=== PATIENT | male | born 1970 | race Caucasian/White ===

== ENCOUNTER → 2020-09-15 17:46 | Outpatient (CLI) | payer OTHER, SELFPAY ==
--- NOTE | ~2020-09-15 | XR_ITS ---
XR cervical spine min 6V DATE: 09/15/2020 18:05 INDICATION: Skin anesthesia TECHNIQUE: AP, open-mouth, lateral, swimmer views. Bilateral oblique views. COMPARISON: None FINDINGS: There is straightening of the cervical spine. C1 and C2 are normally aligned and the odontoid process is intact. No fracture or dislocation or locked facet or prevertebral soft tissue swelling. There is moderate degenerative disc disease and prominent posterior spurring at C5-6. The remaining cervical interspaces are relatively well preserved. There is prominent uncovertebral joint spurring at C5-6 bilaterally, encroaching upon the C6 neural f oramina bilaterally the remaining neural foramina appear patent. IMPRESSION: Straightening of the cervical spine, which may be due to muscle spasm. Moderate degenerative disc disease and prominent posterior spurring at C5-C6 Prominent bilateral C5-6 uncovertebral joint spurring encroaching prominently upon the anterior aspec t of the C6 neural foramina bilaterally Reviewed, dictated and finalized at location A. IMPRESSION: Straightening of the cervical spine, which may be due to muscle spa sm. Moderate degenerative disc disease and prominent posterior spurring at C5-C6 Prominent bilateral C5-6 uncovertebral joint spurring encroaching prominently u taina the anterior aspect of the C6 neural foramina bilaterally
== END ==
PROVIDERS: Visit Provider Nurse Practitioner Family
DX: R20.0 Anesthesia of skin (principal); M50.322 Other cervical disc degeneration at C5-C6 level
CPT/HCPCS: 72052

== ENCOUNTER → 2020-10-08 17:37 | Outpatient (CLI) | payer OTHER, SELFPAY ==
--- NOTE | ~2020-10-08 | MR_ITS ---
EXAMINATION: MR cervical spine wo con DATE: 10/08/2020 19:13 INDICATION: Neck pain radiating down left arm. TECHNIQUE: Magnetic resonance imaging (MRI) of the cervical spine was performed without intravenous c ontrast. Sequences included sagittal T2-weighted FSE, sagittal STIR FSE, sagittal T1-weighted FSE, ax ial MERGE, and axial T2-weighted FSE. COMPARISON: Cervical spine radiographs 09/15/2020 FINDINGS: There is 4 degrees dextrocurvature of cervical spine. There is mild kyphosis of cervical sp ine. Vertebral body heights are normal. There is moderately decreased disc height at C5-C6. The spina l cord signal intensity is normal. The following disc levels are specifically discussed: C2-C3: The disc does not extend beyond the endplate margin. There is no uncovertebral joint osteoarth ritis. There is moderate right and severe left facet joint osteoarthritis. There is mild left neural foraminal stenosis. There is no central canal stenosis. C3-C4: The disc does not extend beyond the endplate margin. There is moderate left uncovertebral join t osteoarthritis. There is mild right and moderate left facet joint osteoarthritis. There is moderate left neural foraminal stenosis. There is no central canal stenosis. C4-C5: The disc does not extend beyond the endplate margin. There is no uncovertebral joint osteoarth ritis. There is mild left facet joint osteoarthritis. There is no neural foraminal stenosis. There is no central canal stenosis. C5-C6: The disc is bulging. There is severe bilateral uncovertebral joint osteoarthritis. There is mi ld right and severe left facet joint osteoarthritis. There is mild right and moderate left neural for aminal stenosis. There is mild central canal stenosis with ventral indentation of the spinal cord. C6-C7: The disc does not extend beyond the endplate margin. There is mild left uncovertebral joint os teoarthritis. There is moderate bilateral facet joint osteoarthritis. There is no neural foraminal st enosis. There is no central canal stenosis. C7-T1: The disc does not extend beyond the endplate margin. There is no uncovertebral joint osteoarth ritis. There is mild right and severe left facet joint osteoarthritis. There is mild left neural fora andrea stenosis. There is no central canal stenosis. IMPRESSION: 1. Moderate cervical spondylosis, worst at C5-C6. Reviewed, dictated and finalized at location A.
== END ==
PROVIDERS: PCP Family Medicine; Visit Provider Nurse Practitioner Family
DX: S19.9XXD Unspecified injury of neck, subsequent encounter (principal); X58.XXXD Exposure to other specified factors, subsequent encounter; M47.892 Other spondylosis, cervical region
CPT/HCPCS: 72141

== ENCOUNTER 2020-11-07 14:51 | Outpatient (CLI) | payer OTHER, SELFPAY ==
--- NOTE | ~2020-11-07 | CT_ITS ---
EXAMINATION: CT abdomen pelvis w con EXAM DATE: 11/07/2020 15:31 INDICATION: R10.31 - Right lower quadrant pain . Symptoms 3-4 days. TECHNIQUE: Spiral CT of the abdomen and pelvis was performed following intravenous injection of 100 m L Omnipaque 350. Axial, coronal and sagittal images of the abdomen and pelvis were reviewed. The do se-length product (DLP) for this examination was 1349.56 mGy-cm. The exposure was tailored according to patient size (auto mA exposure control), and iterative reconstruction (ASIR) was used as addition al dose reduction technique. There is no prior study for comparison. FINDINGS: The origin of the appendix is normal in caliber, but the tip is severely dilated at 2 cm, w ith thickened edematous wall. No perforation or abscess. Mild adjacent inflammation. Several round pe ricecal lymph nodes, largest measuring 9 mm. The liver, spleen, adrenal glands and pancreas are unremarkable. Gallbladder is unremarkable. No bi liary obstruction. Portal and splenic veins are patent. Kidneys enhance symmetrically. There is no hydronephrosis. Lobular renal contours bilaterally. There is mild prostatomegaly. The bladder is un remarkable. There is no retroperitoneal or pelvic lymphadenopathy. There is mild scattered arterio sclerotic disease. Small left inguinal fat-containing hernia. The stomach and small bowel are unremarkable. There is expected amount of colonic stool. No free i ntraperitoneal gas. The heart is normal in size. There are no pericardial or pleural effusions. T he lung bases are unremarkable. There are no osteoblastic or osteolytic lesions identified. IMPRESSION: Acute tip appendicitis, distended up to 2 cm in diameter. STAT hold and call. I confirmed that patient is in waiting room. She is notifying ordering doctor o f results and patient will be given instructions at that time. Reviewed, dictated and finalized at location B. IMPRESSION: Acute tip appendicitis, distended up to 2 cm in diameter. STAT hold and call. I confirmed that patient is in waiting room. She is notif melisa ordering doctor of results and patient will be given instructions at that time.
[2020-11-07 15:31] LABS: Basophils Percent Auto 0.4 % (0.2-1.2); Eosinophils Absolute Auto 0.1 K/mm3 (0-0.3); Eosinophils Percent Auto 1.2 % (0-4.4); Hematocrit 47.8 % (42.0-52.0); Hemoglobin 15.5 g/dL (14.0-18.0); Immature Granulocyte Absolute 0.04 K/mm3 (0.00-0.031); Immature Granulocyte Percent A 0.4 % (0-0.5); Lymphocytes Absolute Auto 2.06 K/mm3 (0.9-3.2); Lymphocytes Percent Auto 20.2 % (18.3-44.2); Mean Corpuscular HGB Conc 32.4 g/dl (32-36); Mean Corpuscular Hemoglobin 28.9 pg (26-34); Mean Corpuscular Volume 89.2 fl (80-100); Mean Platelet Volume 9.4 fl (7.4-10.4); Monocytes Absolute Auto 0.9 K/mm3 (0.1-0.6); Monocytes Percent Auto 9.2 % (2.6-8.5); Neutrophils Percent Auto 68.6 % (45.5-73.1); Platelet Count Result 200 k/mm3 (150-375); Red Blood Count 5.36 M/mm3 (4.6-6.20); Red Cell Distribution Width 13.1 % (11.5-14.5); White Blood Count 10.2 K/mm3 (4.5-10.0)
[2020-11-07 15:41] LABS: Alanine Aminotransferase 59 U/L (4-50); Albumin Level 4.8 g/dL (3.5-5.1); Alkaline Phosphatase 113 U/L (38-126); Anion Gap 7 mmol/L (8-16); Aspartate Amino Transferase 50 U/L (17-59); Blood Urea Nitrogen 12 mg/dL (9-20); Calcium 9.8 mg/dL (8.4-10.2); Carbon Dioxide 31 mmol/L (22-30); Chloride 100 mmol/L (98-107); Estimated Glomerular Filt Rate > 60; Glucose 90 mg/dL (75-110); Potassium 4.1 mmol/L (3.4-5.0); Sodium 138 mmol/L (137-145)
== END 2020-11-07 14:52 | disposition home or self-care (01) ==
PROVIDERS: PCP Family Medicine; Visit Provider Physician Assistant Medical
DX: R10.31 Right lower quadrant pain (principal); K35.80 Unspecified acute appendicitis
CPT/HCPCS: 36415; 74177; 80053; 85025; Q9967

== ENCOUNTER 2020-11-07 16:18 | Observation (INO) | payer OTHER, SELFPAY ==
[2020-11-07 16:30] VITALS: BP 180/103; PULSE 80; RESP 18; TEMP 36.8; O2SAT 100
[2020-11-07 17:09] VITALS: BP 152/89; PULSE 72; RESP 18; O2SAT 99
--- NOTE | 2020-11-07 18:11 | ED.ABDPAIN ---
HPI - Abdominal Pain General Chief Complaint: Abdominal Pain Stated Complaint: Sent From CT Time Seen by Provider: 11/07/20 16:47 Source: patient Mode of arrival: ambulatory Limitations: no limitations History of Present Illness HPI narrative: 50-year-old male Sent from radiology because of a abdominal CT scan positive for appendicitis Patient notes that he had lower abdominal pain predominantly in the right lower quadrant, was seen in his doctor's office, labs and the CT were ordered, resulting in his referral to us He had a poor appetite all day but no vomiting no fever and no bowel disturbance Pain is worse when he moves around and better when he rests Patient is otherwise healthy Related Data Allergies Allergy/AdvReac Type Severity Reaction Status Date / Time No Known Allergies Allergy Verified 11/07/20 16:30 Review of Systems Review of Systems: All systems reviewed & are unremarkable except as noted in HPI and below Constitutional: Constitutional: Reports no additional constitutional complaints, Denies chills, Denies fever(s) and Denies headache(s) ENT: Denies headache(s) Cardiovascular: Cardiovascular: Denies chest pain and Denies dyspnea Respiratory: Respiratory: Denies cough and Denies dyspnea Gastrointestinal: Gastrointestinal: Reports abdominal pain, Denies diarrhea and Denies vomiting Genitourinary: Genitourinary: Denies dysuria and Denies urinary frequency Musculoskeletal: Musculoskeletal: Denies deformity and Denies numbness Integumentary/Breasts: Skin/Breast: Denies wounds Neurologic: Denies headache(s) [facility] Past Medical History Medical History BMI 31.0-31.9,adult BMI 32.0-32.9,adult BMI greater than 30 Surgical History Surgical History Status post surgical removal of nail matrix of toe Family History Family History Grandparent Cerebrovascular accident Malignant neoplasm of prostate Father Family history of coronary artery disease Acute myocardial infarction Mother No problems noted. 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 Gender identity (if verbalized by the patient): Male Exam Const: General: cooperative and no acute distress Orientation/consciousness: patient oriented x3 (alert) HENMT: Head: normal to inspection, normocephalic and atraumatic Ears: external ears normal General nose exam: no epistaxis Eyes: Conjunctivae: conjunctivae normal EOM: EOMs intact bilaterally Neck: Neck: normal visual inspection, supple and no JVD Resp: Effort & Inspection: normal respiratory effort and not labored Auscultation: clear to auscultation bilaterally and other (BS =) Cardio: Rate: regular rate Rhythm: regular rhythm Heart sounds: no murmurs GI: GI Palp: Yes Soft to palpation, Yes Tenderness to palpation present (GI), Yes Guarding due to palpation present (GI), No Rigid due to palpation and No Rebound tenderness present Other: Right lower quadrant tenderness at McBurney's point with guarding : General: Yes no CVA tenderness Skin: General skin exam: normal color and no rashes or lesions noted Neuro: General: patient oriented x3 (alert) and moves all extremities Speech: normal speech Extrem: General: normal to inspection and no pedal edema Psych: Affect: normal affect Course Course Emergency Course: Discussed with Dr. Mccrary, likely plan is for OR
[2020-11-07 19:55] VITALS: BP 191/99; PULSE 61; RESP 18; TEMP 36.5; O2SAT 100; BMI 30.5
--- NOTE | 2020-11-07 19:55 | ADMGEN ---
This patient, Jules Rodríguez, was admitted to Medical Room 348-01. Patient/family oriented to hospital policies and general routines including ID bracelet, bed and alarms, visiting hours, pain management, procedures, bathroom and other care routines, personal items, smoking policy, room service/diet, and visiting hours. Information on how to activate the Rapid Response Team has been discussed. Patient/Family are encouraged to report perceived risks to care and to ask questions if they do not understand what they are told or what they should do.
[2020-11-07] MEDS: LACTATED RINGERS 1,000 ML 125 ML IV CONT (20:00)
[2020-11-07] MEDS: FAMOTIDINE 20 MG/2 ML VIAL IV PUSH (20:24)
[2020-11-08] VITALS (8 sets, daily range): BP systolic 139–182; BP diastolic 79–93; PULSE 52–99; RESP 12–16; TEMP 35.9–36.2; O2SAT 93–100
--- NOTE | 2020-11-08 02:19 | PM.IMHP ---
H&P: HPI History of Present Illness Date/Time: 11/08/20 02:19 Chief Complaint: RIGHT LOWER QUADRANT ABDOMINAL PAIN Narrative: patient reports having heartburn for 3-4 days. His pain moved to the right lower quadrant. He has not had any nausea or vomiting. Movement makes the pain worse. He was seen by his primary care provider this morning. He was noted to have significant tenderness in the right lower quadrant. Stat CT scan of the abdomen and pelvis was done. This showed acute appendicitis with the distal appendix being 2 cm in diameter. He was sent to the emergency room from x-ray. His white blood cell count yesterday afternoon was 10,200. Hemoglobin and hematocrit were normal. He was admitted and started on IV Zosyn antibiotics. Review of Systems Review of Systems: All systems reviewed & are unremarkable except as noted in HPI and below Constitutional: Constitutional: Denies body ache(s), Denies chills, Denies fever(s), Denies headache(s) and Reports poor appetite ENT: Denies headache(s) Cardiovascular: Cardiovascular: Denies chest pain and Denies dyspnea Respiratory: Respiratory: Denies cough and Denies dyspnea Gastrointestinal: Gastrointestinal: Reports as per HPI, Reports abdominal pain, Reports heartburn, Denies nausea and Denies vomiting Neurologic: Denies confusion and Denies headache(s) Psychiatric: Psychiatric: Denies confusion PMFSH Past Medical History Medical History BMI 31.0-31.9,adult BMI 32.0-32.9,adult BMI greater than 30 Surgical History Surgical History Status post surgical removal of nail matrix of toe Family History Family History Grandparent Cerebrovascular accident Malignant neoplasm of prostate Father Family history of coronary artery disease Acute myocardial infarction Mother No problems noted. 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 Gender identity (if verbalized by the patient): Male Sexual Orientation (if Verbalized by the Patient): Straight or Heterosexual Spiritual care concerns: No Meds Home Medications and Allergies Home Medications Medication Instructions Recorded Confirmed Type rosuvastatin 20 mg tablet 20 mg PO DAILY #30 tablet 11/07/20 11/07/20 Rx Allergies Allergy/AdvReac Type Severity Reaction Status Date / Time No Known Allergies Allergy Verified 11/07/20 20:03 Vital Signs Vital Signs - 24 hr 11/07/20 16:30 11/07/20 17:09 11/07/20 19:55 Temperature 36.8 C 36.5 C Pulse Rate 80 72 61 Respiratory Rate 18 18 18 Blood Pressure 180/103 H 152/89 H 191/99 H Pulse Oximetry 100 99 100 Exam Const: General: cooperative, comfortable, no acute distress, alert and awake; No confusion Orientation/consciousness: No confusion HENMT: Head: normocephalic, atraumatic, no contusions and no scalp lesions Ears: external ears normal General nose exam: Normal external nose present Face and sinus: face symmetric and dry mucous membranes Mouth: Yes Normal oral and palatal mucosa present and Yes tongue normal Throat: posterior oropharynx normal Eyes: Conjunctivae: conjunctivae normal Sclera: sclerae normal Pupils: Equal, round and reactive pupils present EOM: EOMs intact bilaterally Neck: Neck: normal visual inspection, no lymphadenopathy, trachea midline, supple, nontender and no JVD Thyroid: abnormal thyroid
[2020-11-08] MEDS: LACTATED RINGERS 1,000 ML 125 ML IV CONT (04:43)
--- NOTE | 2020-11-08 06:49 | WPDHPUPDATE1 ---
History and Physical Update Update Date/Time: 11/08/20 06:49 History and Physical has been reviewed, including an updated exam of the patient. There are NO changes in the patient's condition. Risks, benefits, and alternatives have been discussed and questions answered. Patient agrees to proceed with procedure.
--- NOTE | 2020-11-08 07:33 | PC.NURSE ---
Patient to OR per bed.
--- NOTE | 2020-11-08 07:44 | WPDANESEPPF ---
Anes - Initial Pre Proc Eval Procedure: Operation Date: 11/08/20 08:00 Proposed Procedures p Laparoscopic Appendectomy - Severo Mccrary MD Date/Time: 11/08/20 07:44 Surgeon: Severo Mccrary MD Pre Op Diagnosis: appendicitis Patient Data Age: 50 Gender: M Height: 1.96 m Weight: 116.9 kg Last Vital Signs Temp 35.9 C L 11/08/20 05:37 Pulse 52 L 11/08/20 05:37 Resp 16 11/08/20 05:37 BP 139/82 11/08/20 05:37 Pulse Ox 99 11/08/20 05:37 Allergies Allergy/AdvReac Type Severity Reaction Status Date / Time No Known Allergies Allergy Verified 11/07/20 20:03 Home Medications Medication Instructions Recorded Confirmed Type rosuvastatin 20 mg tablet 20 mg PO DAILY #30 tablet 11/07/20 11/07/20 Rx Patient hx anesthesia problems: none Family hx anesthesia problems: none PMFSH Past Medical History Medical History BMI 32.0-32.9,adult ETOH abuse Surgical History Surgical History Status post surgical removal of nail matrix of toe Family History Family History Grandparent Cerebrovascular accident Malignant neoplasm of prostate Father Family history of coronary artery disease Acute myocardial infarction Mother No problems noted. 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 Gender identity (if verbalized by the patient): Male Sexual Orientation (if Verbalized by the Patient): Straight or Heterosexual Spiritual care concerns: No Anes - Eval Final PreProcedure Day of Procedure 11/08/20 07:44 Patient weight: obese Heart: regular rate and rhythm Lungs: clear to auscultation Airway: Mallampati scale class II Neurological: alert and oriented Last oral intake: >/= 8 hours ASA classification: III Emergent: yes Anesthetic plan: proceed Anesthesia type and monitoring: general ETT and standard monitoring Informed Consent: The patient's anesthetic plan and its attendant risks and benefits were discussed with the patient/family/POA by Dr. Bergeron who examined patient in preop. Questions were solicited and answers provided to the satisfaction of the patient/family/POA.
[2020-11-08] MEDS: BUPIVACAINE/EPINEPHRINE 0.5% 30 ML VIAL INFILTRATE (08:28)
[2020-11-08] MEDS: LACTATED RINGERS 1,000 ML 30 ML IV CONT (08:56)
--- NOTE | 2020-11-08 09:02 | P.OP_ITS ---
Procedure Note - Detailed Date of procedure: 11/08/20 Pre-op diagnosis: appendicitis acute appendicitis Post-op diagnosis: same Procedure performed: Laparoscopic appendectomy Description of procedure: The patient was taken to surgery and induced into general anesthesia. The abdomen was prepped and draped. Trocars were placed in the usual fashion using 0.5% Marcaine with epinephrine and applied Medical optical trocars. A 5 mm camera was used. The patient was placed in Trendelenburg with the right side elevated. The appendix was found and was elevated anteriorly. As suggested on the CT scan, the appendix was very dilated at its distal half or 2/3. Its mesentery was quite thickened as well. There was no gross evidence of malignancy but certainly this is a concern. The base of the appendix appeared completely normal. Dissection was carried out in the mesoappendix at the base of the appendix. The mesoappendix was dissected and the appendiceal vessels cauterized for hemostasis. Eventually the base of the appendix was skeletonized. The appendix was ligated at its base with a Vicryl endo-loop. It was amputated just above the ligature and the mucosa of the appendiceal stump was cauterized. The appendix was immediately placed in an Endo-Catch bag and retrieved through the 10 11 left lower quadrant trocar site. The left lower quadrant trocar site had to be enlarged to accommodate the enlarged appendix. We replaced the 10 11 trocar and occluded the skin with a towel clip. I then reviewed the right lower quadrant and areas of dissection. All looked good with no evidence of bleeding or other problems. We evacuated CO2 and removed the trocar sleeves. Skin wounds were closed with subcuticular 4 O Monocryl skin suture. The wounds were dressed with Exofin surgical adhesive. The patient was awakened and taken to recovery in good condition. Sponge and needle counts were correct x2. Anesthesia: GETA and local (0.5% Marcaine with epinephrine) Surgeon: Severo Mccrary MD Electronic Typesetting Machine Operator: Tanya RICO Estimated blood loss (mL): 10 Drains: No Packing: No Pathology: yes (Appendix) Complications: None Condition: stable Disposition: PACU Findings: Acute non perforated appendicitis with a very dilated, thickened distal half of the appendix.
[2020-11-08] MEDS: ONDANSETRON INJ 4 MG/2 ML VIAL IV PUSH (09:05)
--- NOTE | 2020-11-08 09:07 | PM.DS ---
DS: Admitting Diagnosis Admitting Diagnosis Admitting Diagnosis: Acute appendicitis DS: Discharge Diagnosis Discharge Diagnosis (1) Appendicitis: Code(s): K37 - Unspecified appendicitis Status: Acute DS: Summary Hospital Course Hospital Course: Patient was admitted to the hospital through the ER in the evening of November 07, 2020. He had had some heartburn followed by right lower quadrant and back pain. He was noted to be tender in the right lower [place] [address] scan showed evidence of acute appendicitis. Patient was admitted and started on IV Zosyn. He was observed overnight. He was still having quite a bit of right lower quadrant abdominal pain the following morning, 11/08/2020. Discussion was carried out regarding medically treating acute appendicitis versus laparoscopic appendectomy. It was decided to proceed with laparoscopic appendectomy. The patient had an uneventful laparoscopic appendectomy in the morning of November 08, 2020. The appendix was actually very dilated and thickened over its distal half. An intraluminal growth or neoplasm is a possibility. Pathology is pending. Patient did well after surgery and was able to be discharged after period of observation. Time spent discussing smoking cessation with patient: 3 to 10 minutes Status at Discharge Functional status at discharge: independent ambulation Overall status at discharge: patient is progressing back to baseline Time Spent with Patient Time attestation: Total time spent providing and/or coordinating discharge services: DS: Data Data Completed and Pending Pending studies at discharge: Pending at discharge 11/08/20 08:24 Surgical [PTH] Routine Discharge Plan Discharge Attending physician on discharge: Severo Mccrary Discharging Clinician: Severo Mccrary Anticipated Discharge Date/Time: 11/08/20 13:00 Patient Disposition: Home, Self-Care Activity: may shower, no straining and as tolerated Diet: as tolerated and regular Wound Care Instructions: incision open to air Discharge Instructions: 1. May shower the day after surgery over incisions. 2. Call office for: -Wound increasingly painful or bleeding -Vomiting -Fever of greater than 101 degrees 3. Expect some blood on dressing and old blood on skin. 4. If no bowel movement for three days, take 1 oz. (30 ml) Milk of Magnesia, if no results, take Fleets enema. 5. No heavy lifting > 15-20 pounds for 2 weeks. 6. No driving for 3 days or while taking narcotic pain medications. 7. Up walking 10-30 minutes three times per day. 8. Resume previous home medications. 9. Follow-up 10-14 days in office for wound check or as previously scheduled. 10. Oral pain medications prescription to be sent home with patient. 11. NUTRITION: Start out by drinking fluids and increase your diet as tolerated. If you experience nausea, try dry toast, crackers, and 7-UP. If nausea or vomiting persists, contact your surgeon?s office. Patient Instructions: Antibiotic Form Stand Alone Forms: General Discharge Information Follow-up/Referrals: Severo Mccrary MD [Physician] - 2 Weeks (Call for appointment) Discharge Medications: New hydrocodone-acetaminophen 5-325 mg tablet 1 - 2 tablet PO Q6H PRN (Reason: pain) Qty: 7 RF: 0 ketorolac 10 mg tablet 10 mg PO Q6H 4 Days Qty: 16 RF: 0 Continued rosuvastatin [Crestor] 20 mg tablet 20 mg PO DAILY Qty: 30 RF: 2 Date of admission: 11/07/20 17:35 Primary Care Provider: Pete Landrum Admitting Provider: Severo Mccrary Attending physician on admission: Severo Mccrary Condition: Improved
[2020-11-08] MEDS: diphenhydrAMINE HCl INJ 50 MG/ML VIAL 25 MG IV PUSH (09:21)
[2020-11-08] MEDS: SCOPOLAMINE 1.5 MG PATCH TRANSDERM (09:40)
--- NOTE | 2020-11-08 10:15 | PC.NURSE ---
Pt returned from OR per bed. Report received from DASIA Velasquez.
[2020-11-08] MEDS: ROSUVASTATIN 10 MG TABLET 20 MG PO (10:50)
[2020-11-08] MEDS: ENOXAPARIN 40 MG/0.4 ML SYRINGE SUB-Q (12:38)
[2020-11-08] MEDS: ACETAMINOPHEN 500 MG TABLET PO (12:53)
== END 2020-11-08 18:13 | disposition home or self-care (01) ==
LOC: ANHED 18:17 → ANH3MED 18:25
PROVIDERS: Admitting Provider Surgery; Emergency Provider Emergency Medicine; PCP Family Medicine; Visit Provider Surgery
PROC: 0DTJ4ZZ Resection of Appendix, Percutaneous Endoscopic Approach (ICD-10-PCS; CPT 44970; principal; 2020-11-08 08:00)
DX: C18.1 Malignant neoplasm of appendix (principal); K35.30 Acute appendicitis with localized peritonitis, without perforation or gangrene; R10.9 Unspecified abdominal pain
CPT/HCPCS: 44970; 88304; 96361; 96365; 96366; 96375; 99285; A9270; G0378; J0330; J1100; J1200; J1650; J2250; J2405; J2543; J2704; J3010; J7120

== ENCOUNTER → 2020-12-02 02:24 | Outpatient (CLI) | payer OTHER, SELFPAY ==
[2020-12-02 18:14] LABS: SARS-CoV-2 RNA PCR Negative
== END ==
PROVIDERS: PCP Family Medicine; Visit Provider Internal Medicine Gastroenterology
DX: Z01.812 Encounter for preprocedural laboratory examination (principal); Z20.822 Contact with and (suspected) exposure to COVID-19
CPT/HCPCS: C9803; U0003; U0005

== ENCOUNTER 2020-12-05 10:58 | Day surgery (SDC) | payer OTHER, SELFPAY ==
[2020-11-26 13:12] VITALS: BMI 30.8
[2020-12-05 08:39] VITALS: BP 158/99; PULSE 70; RESP 18; TEMP 36.6; O2SAT 98
[2020-12-05] MEDS: LACTATED RINGERS 1,000 ML 150 ML IV CONT (08:49)
--- NOTE | 2020-12-05 09:26 | PM.HPGS ---
History of Present Illness History of Present Illness Consent: Risks, benefits, and alternatives have been discussed and questions answered. Patient agrees to proceed with procedure. Chief complaint: carcinoma of the appendix Narrative: Jules Rodríguez is a 50 year old male [place] for colon cancer screening. 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 He will be scheduled for right colectomy, pending results of this study Review of Systems Review of Systems: All systems reviewed & are unremarkable except as noted in HPI and below PMFSH Past Medical History Medical History BMI 32.0-32.9,adult ETOH abuse Surgical History Surgical History History of laparoscopic appendectomy Status post surgical removal of nail matrix of toe Family History Family History Grandparent Cerebrovascular accident Malignant neoplasm of prostate Father Family history of coronary artery disease Acute myocardial infarction Mother No problems noted. 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 Gender identity (if verbalized by the patient): Male Spiritual care concerns: No Meds Home Medications and Allergies Home Medications Medication Instructions Recorded Confirmed Type rosuvastatin 20 mg tablet 20 mg PO DAILY #30 tablet 11/07/20 12/05/20 Rx sodium,potassium,mag sulfates 17.5 See Rx Instructions PO .COMPLEX 11/26/20 12/05/20 Rx gram-3.13 gram-1.6 gram oral soln #354 ml Allergies Allergy/AdvReac Type Severity Reaction Status Date / Time No Known Allergies Allergy Verified 12/05/20 08:37 Vital Signs Vital Signs - 24 hr 12/05/20 08:39 Temperature 36.6 C Pulse Rate 70 Respiratory Rate 18 Blood Pressure 158/99 H Pulse Oximetry 98 Exam Resp: Auscultation: clear to auscultation bilaterally Cardio: Rate: regular rate Rhythm: regular rhythm GI: GI Palp: Yes Soft to palpation and No Tenderness to palpation present (GI) Assessment and Plan Assessment and plan (1) Carcinoma of appendix: Code(s): C18.1 - Malignant neoplasm of appendix Status: Acute Assessment and Plan: Colonoscopy with possible biopsy or polypectomy or cautery or injection of substances.
[2020-12-05] MEDS: SIMETHICONE ORAL SUSPENSION 20 MG/0.3 ML 30 ML BOTTLE 0.6 ML IRRIGATION (09:36)
--- NOTE | 2020-12-05 09:41 | WPDANESEPPF ---
Anes - Initial Pre Proc Eval Procedure: Operation Date: 12/05/20 12:00 Proposed Procedures p Colonoscopy - Duy Garcia MD Date/Time: 12/05/20 09:41 Surgeon: Duy Garcia MD Pre Op Diagnosis: carcinoma of the appendix Patient Data Age: 50 Gender: M Height: 6 ft 5 in Weight: 114.8 kg Last Vital Signs Temp 97.8 F 12/05/20 08:39 Pulse 70 12/05/20 08:39 Resp 18 12/05/20 08:39 BP 158/99 H 12/05/20 08:39 Pulse Ox 98 12/05/20 08:39 Allergies Allergy/AdvReac Type Severity Reaction Status Date / Time No Known Allergies Allergy Verified 12/05/20 08:37 Home Medications Medication Instructions Recorded Confirmed Type rosuvastatin 20 mg tablet 20 mg PO DAILY #30 tablet 11/07/20 12/05/20 Rx sodium,potassium,mag sulfates 17.5 See Rx Instructions PO .COMPLEX 11/26/20 12/05/20 Rx gram-3.13 gram-1.6 gram oral soln #354 ml Patient hx anesthesia problems: none Family hx anesthesia problems: none PMFSH Past Medical History Medical History BMI 32.0-32.9,adult ETOH abuse Surgical History Surgical History History of laparoscopic appendectomy Status post surgical removal of nail matrix of toe Family History Family History Grandparent Cerebrovascular accident Malignant neoplasm of prostate Father Family history of coronary artery disease Acute myocardial infarction Mother No problems noted. 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 Questions were solicited and answers provided to the satisfaction of the patient/family/POA.
[2020-12-05 09:50] VITALS: BP 136/92; PULSE 87; RESP 17; O2SAT 97
[2020-12-05 10:00] VITALS: BP 146/97; PULSE 67; RESP 18; O2SAT 98
[2020-12-05 10:10] VITALS: BP 151/100; PULSE 66; RESP 16; O2SAT 98
== END 2020-12-05 11:03 | disposition home or self-care (01) ==
LOC: ANHENDO 10:58
PROVIDERS: PCP Family Medicine; Visit Provider Internal Medicine Gastroenterology
PROC: 0DJD8ZZ Inspection of Lower Intestinal Tract, Via Natural or Artificial Opening Endoscopic (ICD-10-PCS; CPT 45378; principal; 2020-12-05 12:00)
DX: Z12.11 Encounter for screening for malignant neoplasm of colon (principal); C18.1 Malignant neoplasm of appendix; Z87.891 Personal history of nicotine dependence
CPT/HCPCS: 45378; C9803; J2704; J7120; U0003; U0005

== ENCOUNTER 2020-12-16 07:51 | Outpatient (CLI) | payer OTHER, SELFPAY ==
--- NOTE | 2020-12-16 08:40 | ECG_ITS ---
Measurements Intervals [place] Rate: 53 P: 16 TX: 162 QRS: -34 QRSD: 108 T: 8 QT: 411 QTc: 387 Interpretive Statements SINUS BRADYCARDIA LEFT AXIS DEVIATION DELAYED PRECORDIAL R/S TRANSITION BASELINE ARTIFACT- I, II BORDERLINE ECG Electronically Signed On 12-16-2020 8:51:58 CDT by Gurvinder Meza D.O.
[2020-12-16 09:14] LABS: Hematocrit 43.4 % (42.0-52.0); Hemoglobin 14.4 g/dL (14.0-18.0); Mean Corpuscular HGB Conc 33.2 g/dl (32-36); Mean Corpuscular Hemoglobin 29.3 pg (26-34); Mean Corpuscular Volume 88.4 fl (80-100); Mean Platelet Volume 9.6 fl (7.4-10.4); Platelet Count Result 203 k/mm3 (150-375); Red Blood Count 4.91 M/mm3 (4.6-6.20); White Blood Count 6.3 K/mm3 (4.5-10.0)
[2020-12-16 09:32] LABS: Anion Gap 11 mmol/L (8-16); Blood Urea Nitrogen 14 mg/dL (9-20); Calcium 9.5 mg/dL (8.4-10.2); Carbon Dioxide 24 mmol/L (22-30); Chloride 106 mmol/L (98-107); Estimated Glomerular Filt Rate > 60; Glucose 106 mg/dL (75-110); Potassium 4.3 mmol/L (3.4-5.0); Sodium 141 mmol/L (137-145)
== END 2020-12-16 07:52 | disposition home or self-care (01) ==
LOC: ANHSURGERY 07:54
PROVIDERS: PCP Family Medicine; Visit Provider Surgery
DX: Z01.818 Encounter for other preprocedural examination (principal); C18.1 Malignant neoplasm of appendix; E78.00 Pure hypercholesterolemia, unspecified; R00.1 Bradycardia, unspecified
CPT/HCPCS: 36415; 80048; 85027; 86850; 86900; 86901; 93005

== ENCOUNTER → 2020-12-22 00:27 | Outpatient (CLI) | payer OTHER, SELFPAY | PROVIDERS: PCP Family Medicine; Visit Provider Surgery | DX: Z01.812 Encounter for preprocedural laboratory examination (principal); Z20.822 Contact with and (suspected) exposure to COVID-19 | CPT/HCPCS: C9803; U0003; U0005 ==

== ENCOUNTER 2020-12-24 08:00 | Outpatient (CLI) | payer OTHER, SELFPAY ==
[2020-12-24 10:39] LABS: EDCOVIDSCREEN Negative (Negative)
== END 2020-12-24 08:01 | disposition home or self-care (01) ==
LOC: ANHLAB 12-31 10:45
PROVIDERS: PCP Family Medicine; Visit Provider Surgery
DX: Z01.812 Encounter for preprocedural laboratory examination (principal); Z20.822 Contact with and (suspected) exposure to COVID-19
CPT/HCPCS: 36415; 87426; C9803

== ENCOUNTER 2020-12-25 16:26 | Inpatient (IN) | payer OTHER, SELFPAY ==
[2020-12-16 08:05] VITALS: BP 188/103; PULSE 65; RESP 18; TEMP 36.8; O2SAT 99; BMI 31.2
--- NOTE | 2020-12-24 12:41 | WPDANESEPPF ---
Anes - Initial Pre Proc Eval Procedure: Operation Date: 12/25/20 10:30 Proposed Procedures p Hand Assisted Laparoscopic Right Colectomy - Severo Mccrary MD Date/Time: 12/24/20 12:41 Surgeon: Severo Mccrary MD Pre Op Diagnosis: mucocele adenocarcinoma appendix Patient Data Age: 50 Gender: M Height: 1.96 m Weight: 119.6 kg Last Vital Signs Temp 36.8 C 12/16/20 08:05 Pulse 65 12/16/20 08:05 Resp 18 12/16/20 08:05 BP 188/103 H 12/16/20 08:05 Pulse Ox 99 12/16/20 08:05 Allergies Allergy/AdvReac Type Severity Reaction Status Date / Time No Known Allergies Allergy Verified 12/25/20 09:35 Home Medications Medication Instructions Recorded Confirmed Type rosuvastatin 20 mg tablet 20 mg PO DAILY #30 tablet 11/07/20 12/25/20 Rx sodium,potassium,mag sulfates 17.5 See Rx Instructions PO .COMPLEX 11/26/20 12/25/20 Rx gram-3.13 gram-1.6 gram oral soln #354 ml cholecalciferol (vitamin D3) 50 mcg PO DAILY 12/16/20 12/25/20 History zinc-magnesium aspart-vit B6 [Zinc 1 cap PO DAILY 12/16/20 12/25/20 History Magnesium Aspartate] Laboratory Tests 12/24/20 10:16 SARS-CoV-2 IgG/IgM Ag?Rapid Negative (Negative) Patient hx anesthesia problems: none Family hx anesthesia problems: none PMFSH Past Medical History Medical History (Updated 12/24/20 @ 15:12 by Severo Mccrary MD) BMI 32.0-32.9,adult ETOH abuse Hyperlipidemia Surgical History Surgical History History of laparoscopic appendectomy Status post surgical removal of nail matrix of toe Family History Family History Grandparent Cerebrovascular accident Malignant neoplasm of prostate Father Family history of coronary artery disease Acute myocardial infarction Mother No problems noted. 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 Questions were solicited and answers provided to the satisfaction of the patient/family/POA.
--- NOTE | 2020-12-24 15:04 | PM.IMHP ---
H&P: HPI History of Present Illness Date/Time: 12/24/20 15:04 Chief Complaint: Cancer of the appendix Narrative: patient is a 50-year-old man who presented on November 08 with heartburn for 3-4 days which moved to the right lower quadrant. He had tenderness in the right lower quadrant. A CT scan showed evidence of acute appendicitis with the distal appendix being 20 mm in diameter. His white count was at the upper limits of normal. He was taken to surgery on November 08 and laparoscopic appendectomy was performed. The distal half of the appendix was noted be very dilated and thickened. The patient recovered uneventfully. 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 This invaded into but not through the muscularis propria. It did not involve the resection margins. Its histologic grade was G1 well differentiated. No lymph nodes were identified in the specimen. After discussion in the office, the patient was referred to Dr. Bryon Garcia. Dr. Garcia performed colonoscopy on December 05, 2020. The colonoscopy was negative. The patient is taken to surgery now for elective laparoscopic right colectomy to complete surgical treatment of his appendiceal adenocarcinoma. Review of Systems Review of Systems: All systems reviewed & are unremarkable except as noted in HPI and below Constitutional: Constitutional: Denies headache(s) Cardiovascular: Cardiovascular: Denies chest pain and Denies dyspnea Respiratory: Respiratory: Denies cough and Denies dyspnea Gastrointestinal: Gastrointestinal: Denies bloating, Denies constipation and Denies nausea Neurologic: Denies confusion and Denies headache(s) Psychiatric: Psychiatric: Denies confusion [facility] Past Medical History Medical History (Updated 12/24/20 @ 15:12 by Severo Mccrary MD) BMI 32.0-32.9,adult ETOH abuse Hyperlipidemia Surgical History Surgical History History of laparoscopic appendectomy Status post surgical removal of nail matrix of toe Family History Family History Grandparent Cerebrovascular accident Malignant neoplasm of prostate Father Family history of coronary artery disease Acute myocardial infarction Mother No problems noted. 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 Gender identity (if verbalized by the patient): Male Spiritual care concerns: No Meds Home Medications and Allergies Home Medications Medication Instructions Recorded Confirmed Type rosuvastatin 20 mg tablet 20 mg PO DAILY #30 tablet 11/07/20 12/16/20 Rx sodium,potassium,mag sulfates 17.5 See Rx Instructions PO .COMPLEX 11/26/20 12/16/20 Rx gram-3.13 gram-1.6 gram oral soln #354 ml cholecalciferol (vitamin D3) 50 mcg PO DAILY 12/16/20 12/16/20 History zinc-magnesium aspart-vit B6 [Zinc 1 cap PO DAILY 12/16/20 12/16/20 History Magnesium Aspartate] Allergies Allergy/AdvReac Type Severity Reaction Status Date / Time No Known Allergies Allergy Verified 12/16/20 07:59 Exam Const: General: cooperative, comfortable, no acute distress, alert and awake; No confusion Orientation/consciousness: No confusion HENMT: Head: normocephalic, atraumatic, no contus
[2020-12-25] VITALS (12 sets, daily range): BP systolic 88–147; BP diastolic 37–90; PULSE 48–93; RESP 10–20; TEMP 35.8–36.6; O2SAT 95–100; BMI 30.2
[2020-12-25] MEDS: LACTATED RINGERS 1,000 ML 30 ML IV CONT ×2 (09:17→14:24)
[2020-12-25] MEDS: ACETAMINOPHEN 500 MG TABLET 1000 MG PO (09:23)
[2020-12-25] MEDS: ALVIMOPAN 12 MG CAPSULE PO (09:23)
[2020-12-25] MEDS: KETOROLAC 15 MG/ML VIAL (*BKC) IV PUSH (09:24)
--- NOTE | 2020-12-25 11:06 | WPDHPUPDATE1 ---
History and Physical Update Update Date/Time: 12/25/20 11:06 History and Physical has been reviewed, including an updated exam of the patient. There are NO changes in the patient's condition. Risks, benefits, and alternatives have been discussed and questions answered. Patient agrees to proceed with procedure.
[2020-12-25] MEDS: ceFAZolin 2 GM/D5W 50 ML 2 GM/50 ML BAG IVPB (11:11)
[2020-12-25] MEDS: metroNIDAZOLE 500 MG/ISO 100ML 500 MG/100 ML BAG 100 MG IVPB (11:12)
[2020-12-25] MEDS: BUPIVACAINE/EPINEPHRINE 0.5% 10 ML VIAL 40 ML INFILTRATE (11:36)
--- NOTE | 2020-12-25 14:56 | W.PM.PROC2 ---
Procedure Note - Detailed Date of Procedure 12/25/20 Pre-op Diagnosis Mucinous adenocarcinoma appendix Post-op Diagnosis same Procedure Performed Hand access laparoscopic right colectomy Surgeon Severo Mccrary MD [employer] Madelyn [employer] ADVIS[employer] Anesthesia general and local (0.5% Marcaine with epinephrine) Indications Patient had an appendectomy several weeks ago. Pathology showed invasive mucinous adenocarcinoma. Subsequent colonoscopy was negative. He is taken to surgery now for hand access laparoscopic right colectomy. Findings Changes of appendectomy. No evidence of malignancy. Description of Procedure The patient was taken to the operating room and induced into general anesthesia. The abdomen was prepped and draped. The hand access port was placed 1st. The proposed incision was marked in the midline above the umbilicus. This was about an 8 cm incision. Local was infiltrated into the skin and the subcutaneous. Incision was made. Dissection was carried down to the midline fascia. More local was infiltrated into the fascia and the properitoneal fat. The fascia was then opened and the peritoneal cavity entered. We placed the Juve wound guard. The GelPort was placed. With the hand in the abdomen, I infiltrated local in the right lower quadrant. A 5 mm trocar was placed here. Similarly another 5 mm trocar was placed in the left mid abdomen. We started the dissection with the cecum in the right lower quadrant. It was dissected from the retroperitoneum and I was able to enter the retroperitoneal plane. I then elevated the distal ileum and incised the peritoneum at its base. This allowed me to enter the retroperitoneum in this area as well. The mesentery to the ascending colon was dissected in a medial the lateral fashion. Dissection was continued up to the transverse mesocolon. When this was completed, the lateral peritoneal attachments to the ascending colon were divided. Nearly all the dissection and hemostasis was achieved using LigaSure. From this point, the distal ileum was elevated and dissection was carried through the mesentery to the distal ileum. This was divided with the LigaSure as well. Dissection was then carried over to the ileocolic artery. The ileocolic artery was dissected out near its origin. It was then thoroughly cauterized with the LigaSure and divided. We then dissected the ascending colon mesentery near its base up to the transverse mesocolon. There were adhesions to the gallbladder of the omentum and these were taken down. The hepatic colic ligament was divided further mobilizing the transverse colon. I was then able to elevate the transverse colon mesentery and divided it near its origin. This was also done with the LigaSure. Once the transverse colon was mobilized adequately, we stopped insufflation and removed the GelPort. The ascending colon including the distal ileum and proximal transverse colon were eviscerated. Some additional dissection of omentum off of the transverse colon was carried out to expose the area of distal resection. I then used a TLC 75 stapler to divide the distal ileum at the proximal line of resection. A reload of the TLC 75 was used to divide the proximal transverse colon at the distal line of resection. The a sending colon was then passed off to pathology as a specimen. The proximal transverse colon and distal ileum were then placed in proximity. Care was taken to make sure the small bowel mesentery was not twisted. We quarantine the area where the anastomosis was to be performed. I hand-sewn [id number] anastomosis was performed. This was a functional end-to-end anastomosis. The posterior outer layer was created with interrupted 4 0 silk Lembert sutures. The transverse colon was then opened and as was the distal corresponding ileum. No real enteric content came forth as the bowel prep was quite adequate. The posterior inner layer of running locking bidirectional 4 0 chromi
[2020-12-25] MEDS: fentaNYL CITRATE INJ (*CRX) 100 MCG/2 ML VIAL 25 MCG IV PUSH ×4 (14:59→15:16)
--- NOTE | 2020-12-25 16:40 | ADMGEN ---
This patient, Jules Rodríguez, was admitted to Medical Room 349-01. Patient/family oriented to hospital policies and general routines including ID bracelet, bed and alarms, visiting hours, pain management, procedures, bathroom and other care routines, personal items, smoking policy, room service/diet, and visiting hours. Information on how to activate the Rapid Response Team has been discussed. Patient/Family are encouraged to report perceived risks to care and to ask questions if they do not understand what they are told or what they should do.
[2020-12-25] MEDS: LACTATED RINGERS 1,000 ML 80 ML IV CONT (18:35)
[2020-12-25] MEDS: HYDROcodone/acetaminophen (*CRX) 5-325 MG TABLET 1 TAB PO ×2 (18:39→22:46)
[2020-12-25] MEDS: FAMOTIDINE 20 MG/2 ML VIAL IV PUSH (20:20)
[2020-12-25] MEDS: ENOXAPARIN 30 MG/0.3 ML SYRINGE SUB-Q (20:20)
[2020-12-26] MEDS: MORPHINE SULFATE (*CRX) 2 MG/ML INJ IV PUSH ×2 (00:29→15:23)
[2020-12-26 05:15] VITALS: BP 130/71; PULSE 73; RESP 18; TEMP 36.3; O2SAT 98
[2020-12-26] MEDS: HYDROcodone/acetaminophen (*CRX) 5-325 MG TABLET 1 TAB PO ×5 (05:21→22:16)
[2020-12-26] MEDS: MORPHINE SULFATE (*CRX) 4 MG/ML INJ IV PUSH (06:42)
[2020-12-26] MEDS: LACTATED RINGERS 1,000 ML 80 ML IV CONT (06:46)
[2020-12-26 06:53] LABS: Hematocrit 43.1 % (42.0-52.0); Hemoglobin 13.9 g/dL (14.0-18.0); Mean Corpuscular HGB Conc 32.3 g/dl (32-36); Mean Corpuscular Hemoglobin 28.8 pg (26-34); Mean Corpuscular Volume 89.4 fl (80-100); Mean Platelet Volume 10.3 fl (7.4-10.4); Platelet Count Result 244 k/mm3 (150-375); Red Blood Count 4.82 M/mm3 (4.6-6.20); Red Cell Distribution Width 12.9 % (11.5-14.5); White Blood Count 17.3 K/mm3 (4.5-10.0)
[2020-12-26 07:00] LABS: Anion Gap 9 mmol/L (8-16); Blood Urea Nitrogen 15 mg/dL (9-20); Calcium 8.9 mg/dL (8.4-10.2); Carbon Dioxide 24 mmol/L (22-30); Chloride 103 mmol/L (98-107); Estimated CRCL calculation 110 ml/min; Estimated Glomerular Filt Rate > 60; Glucose 130 mg/dL (75-110); Potassium 4.6 mmol/L (3.4-5.0); Sodium 136 mmol/L (137-145)
--- NOTE | 2020-12-26 07:25 | PM.PNGS ---
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 Slowly advance diet. Ambulate. P.r.n. analgesics are helping. Recheck labs and follow. Not ready to go home yet. Requiring IV narcotic analgesics. Bowel function not yet returned. Subjective Subjective Date/Time Seen: 12/26/20 07:25 Post Op day: 1 Patient reports: still having pain, tolerating liquids well, no flatus and no bowel movement Exam GI: Inspection: non-distended and incision (Incisions dry and healing) GI Palp: Yes Firmness to palpation present (GI) and Yes Tenderness to palpation present (GI) Auscultation: Hypoactive bowel sounds present Objective Data Vital Signs Vital Signs: Vital Signs - 24 hr 12/25/20 09:00 12/25/20 14:24 12/25/20 14:35 Temperature 35.8 C L 36.4 C L Pulse Rate 66 48 L 51 L Respiratory Rate 18 10 L 12 Blood Pressure 146/87 H 88/37 L 93/50 L Pulse Oximetry 100 98 100 12/25/20 14:50 12/25/20 15:05 12/25/20 15:20 Temperature Pulse Rate 60 64 50 L Respiratory Rate 20 16 12 Blood Pressure 124/71 124/72 120/78 Pulse Oximetry 100 95 95 12/25/20 15:35 12/25/20 15:50 12/25/20 16:05 Temperature Pulse Rate 58 L 75 73 Respiratory Rate 20 18 12 Blood Pressure 114/76 147/90 H 140/83 Pulse Oximetry 98 100 99 12/25/20 16:20 12/25/20 16:42 12/25/20 19:56 Temperature 36.6 C Pulse Rate 61 69 93 Respiratory Rate 12 12 17 Blood Pressure 142/88 H 134/74 Pulse Oximetry 100 100 97 12/26/20 05:15 Temperature 36.3 C L Pulse Rate 73 Respiratory Rate 18 Blood Pressure 130/71 Pulse Oximetry 98 Intake/Output Intake/Output: Intake & Output 12/23/20 12/24/20 12/25/20 12/26/20 23:59 23:59 23:59 23:59 Intake Total 1200 1500 Output Total 1100 Balance 1200 400 Meds/Results Medications: Active Medications Generic Name Dose Route Start Last Admin Trade Name Freq PRN Reason Stop Dose Admin Acetaminophen 500 mg 12/25/20 16:26 Acetaminophen 500 Mg Tablet PO Q6H PRN Mild Pain (1-3) or Fever Hydrocodone Bitart/Acetaminophen 1 tab 12/25/20 16:26 12/26/20 05:21 Hydrocodone/Acetaminophen (*Crx) 5-325 Mg Tablet PO 1 tab Q4H PRN Administration Pain Rated 4-6 Alvimopan 12 mg 12/26/20 21:00 Alvimopan 12 Mg Capsule PO 01/02/21 21:01 Q12HR [place] Enoxaparin Sodium 30 mg 12/25/20 21:00 12/25/20 20:20 Enoxaparin 30 Mg/0.3 Ml Syringe SUB-Q 30 mg Q12HR [place] Administration Famotidine 20 mg 12/25/20 21:00 12/25/20 20:20 Famotidine 20 Mg/2 Ml Vial IV PUSH 20 mg Q12HR [place] Administration Lactated Ringer's 1,000 mls @ 80 mls/hr 12/25/20 16:26 12/26/20 06:46 Lr - Lactated Ringers Iv IV CONT 80 mls/hr .[id number] [place] Administration Morphine Sulfate 2 mg 12/25/20 16:26 12/26/20 00:29 Morphine Sulfate (*Crx) 2 Mg/Ml Inj IV PUSH 2 mg Q2H PRN Administration Pain Rated 4-6 Morphine Sulfate 4 mg 12/25/20 16:26 12/26/20 06:42 Morphine Sulfate (*Crx) 4 Mg/Ml Inj IV PUSH 4 mg Q2H PRN Administration Pain Rated 7-10 Naloxone HCl 0.1 mg 12/25/20 16:26 Naloxone Hcl 0.4 Mg/Ml Vial IV PUSH Q2M PRN Opiate Reversal Ondansetron HCl 4 mg 12/25/20 16:26 Ondansetron Inj 4 Mg/2 Ml Vial IV PUSH Q4H PRN Nausea And Vomiting Rosuvastatin Calcium 20 mg 12/26/20 09:00 Rosuvastatin 10 Mg Tablet PO DAILY [place] Labs Labs: Laboratory Results - last 24 hr 12/26/20 12/26/20 06:08 06:08 WBC 17.3 H RBC 4.82 Hgb 13.9 L Hct 43.1 MCV 89.4 MCH 28.8 MCHC 32.3 RDW 12.9 Plt Count 244 MPV 10.3 Sodium 136 L Potassium 4.6 Chloride 103 Carbon Dioxide 24 Anion Gap 9 BUN 15 Creatinine 0.90 Estim Creat Clear Calc 110 Estimated GFR > 60 Glucose 130 H Calcium
[2020-12-26] MEDS: ROSUVASTATIN 10 MG TABLET 20 MG PO (09:14)
[2020-12-26] MEDS: FAMOTIDINE 20 MG/2 ML VIAL IV PUSH (09:14)
[2020-12-26] MEDS: ENOXAPARIN 30 MG/0.3 ML SYRINGE SUB-Q ×2 (09:14→20:00)
--- NOTE | 2020-12-26 11:10 | WPDANESPN ---
Anes - Prog Note Post-Op Date/Time: 12/26/20 11:10 Cardiovascular status: normal Respiratory status: normal Airway patency: baseline Mental status: baseline Post-Op hydration status: normal Vital Signs: Last Vital Signs Temp 36.3 C L 12/26/20 05:15 Pulse 73 12/26/20 05:15 Resp 18 12/26/20 05:15 BP 130/71 12/26/20 05:15 Pulse Ox 98 12/26/20 05:15 Pain Score (VAS): 210 I/O: Intake & Output 12/25/20 12/26/20 12/26/20 23:59 07:59 15:59 Intake Total 1050 1500 Output Total 1100 Balance 1050 400 Laboratory Tests 12/26/20 06:08 12/26/20 06:08 12/26/20 12/26/20 06:08 06:08 WBC 17.3 H RBC 4.82 Hgb 13.9 L Hct 43.1 MCV 89.4 MCH 28.8 MCHC 32.3 RDW 12.9 Plt Count 244 MPV 10.3 Sodium 136 L Potassium 4.6 Chloride 103 Carbon Dioxide 24 Anion Gap 9 BUN 15 Creatinine 0.90 Estim Creat Clear Calc 110 Estimated GFR > 60 Glucose 130 H Calcium 8.9 Post-procedural complaints: none Patient Feedback: Patient satisfied with anesthetic care.
[2020-12-26 14:00] VITALS: PULSE 62; RESP 16; TEMP 36.2; O2SAT 96
[2020-12-26 15:11] VITALS: BP 139/85; PULSE 57; O2SAT 98
[2020-12-26 19:54] VITALS: BP 134/87; PULSE 64; RESP 18; TEMP 36.2; O2SAT 98
[2020-12-26] MEDS: FAMOTIDINE 20 MG TABLET PO (20:00)
[2020-12-26] MEDS: ALVIMOPAN 12 MG CAPSULE PO (20:00)
[2020-12-27] MEDS: HYDROcodone/acetaminophen (*CRX) 5-325 MG TABLET 1 TAB PO ×3 (05:24→18:44)
[2020-12-27 05:26] VITALS: BP 133/84; PULSE 62; RESP 16; TEMP 36.1; O2SAT 97
[2020-12-27 07:57] LABS: Hematocrit 38.2 % (42.0-52.0); Hemoglobin 11.9 g/dL (14.0-18.0); Mean Corpuscular HGB Conc 31.2 g/dl (32-36); Mean Corpuscular Hemoglobin 28.6 pg (26-34); Mean Corpuscular Volume 91.8 fl (80-100); Mean Platelet Volume 9.7 fl (7.4-10.4); Platelet Count Result 193 k/mm3 (150-375); Red Blood Count 4.16 M/mm3 (4.6-6.20); Red Cell Distribution Width 13.2 % (11.5-14.5); White Blood Count 12.2 K/mm3 (4.5-10.0)
[2020-12-27 08:09] LABS: Anion Gap 5 mmol/L (8-16); Blood Urea Nitrogen 17 mg/dL (9-20); Calcium 8.5 mg/dL (8.4-10.2); Carbon Dioxide 26 mmol/L (22-30); Chloride 107 mmol/L (98-107); Estimated CRCL calculation 139 ml/min; Estimated Glomerular Filt Rate > 60; Glucose 107 mg/dL (75-110); Potassium 4.1 mmol/L (3.4-5.0); Sodium 138 mmol/L (137-145)
[2020-12-27] MEDS: FAMOTIDINE 20 MG TABLET PO ×2 (08:53→20:01)
[2020-12-27] MEDS: ROSUVASTATIN 10 MG TABLET 20 MG PO (08:53)
--- NOTE | 2020-12-27 09:15 | PM.DS ---
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 Margins were clear and there was no evidence of rupture. Patient had a negative colonoscopy by Dr. Garcia on 12/05/2020. After home bowel preparation he was taken to surgery on the day of admission 12/25/2020 and hand access laparoscopic right colectomy was performed. The surgery went well. Pathology is pending at the time of this dictation. Hand-sewn colorectal anastomosis was performed. No evidence of malignancy was noted at surgery. Postoperatively, the patient did well. He was still very uncomfortable on postop day 1. His diet was slowly advanced and he was comfortable on oral analgesics on postop day 2. He had a bowel movement and wounds were healing well. He was able to be discharged on postop day 2. In good condition. Status at Discharge Functional status at discharge: independent ambulation Overall status at discharge: patient is progressing back to baseline Time Spent with Patient Time attestation: Total time spent providing and/or coordinating discharge services: Exam GI: Inspection: non-distended, incision ( Incisions dry and healing well) and scaphoid GI Palp: Yes Soft to palpation and Yes Tenderness to palpation present (GI) ( mild appropriate incisional tenderness) Auscultation: normal bowel sounds DS: Data Data Completed and Pending Pending studies at discharge: Pending at discharge 12/25/20 12:54 Surgical [PTH] Routine Labs on day of discharge: Labs from last 24 hours 12/27/20 12/27/20 07:42 07:42 WBC 12.2 H RBC 4.16 L Hgb 11.9 L Hct 38.2 L MCV 91.8 MCH 28.6 MCHC 31.2 L RDW 13.2 Plt Count 193 MPV 9.7 Sodium 138 Potassium 4.1 Chloride 107 Carbon Dioxide 26 Anion Gap 5 L BUN 17 Creatinine 0.70 Estim Creat Clear Calc 139 Estimated GFR > 60 Glucose 107 Calcium 8.5 Discharge Plan Discharge Attending physician on discharge: Severo Mccrary Discharging Clinician: Severo Mccrary Anticipated Discharge Date/Time: 06/26/21 09:19 Patient Disposition: Home, Self-Care Activity: may shower, no straining and as tolerated Diet: as tolerated and regular Wound Care Instructions: incision open to air Discharge Instructions: Ambulate 3-4 x per day and as tolerated. No lifting over 15-20lbs. May bathe or shower. Stairs are OK. May drive a car in 3 days. Patient Instructions: Antibiotic Form, Pain Management (DC), Weakness (DC), Fall Prevention (DC), Colectomy (DC) Stand Alone Forms: General Discharge Information Follow-up/Referrals: Severo Mccrary MD [Physician] - 2 Weeks ( call Dr. cruz office to get appointment) Discharge Medications: New hydrocodone-acetaminophen 5-325 mg tablet 1 - 2 tablet PO Q6H PRN (Reason: pain) Qty: 12 RF: 0 ketorolac 10 mg tablet 10 mg PO Q6H 4 Days Qty: 16 RF: 0 Continued rosuvastatin [Crestor] 20 mg tablet 20 mg PO DAILY Qty: 30 RF: 2 Zinc Magnesium Aspartate 10-150-3.83 mg Capsule 1 cap PO DAILY RF: 0 cholecalciferol (vitamin D3) 50 mcg (2,000 unit) Capsule 50 mcg PO DAILY RF: 0 Discontinued Suprep Bowel Prep Kit 17.5-3.13-1.6 gram recon soln See Rx Instructions PO .COMPLEX Qty: 354 RF: 0 Date of admission: 12/25/20 16:26 Primary Care Provider: Pete Landrum Admitting Provider: Severo Mccrary Attending physician on admission: Severo Mccrary Condition: Improved
[2020-12-27 17:40] VITALS: BP 138/93; PULSE 70; RESP 16; TEMP 36.9; O2SAT 99
[2020-12-27] MEDS: ENOXAPARIN 40 MG/0.4 ML SYRINGE SUB-Q (18:44)
[2020-12-27 21:12] VITALS: BP 134/80; PULSE 67; RESP 18; TEMP 35.8; O2SAT 98
--- NOTE | 2020-12-27 21:33 | PC.NURSE ---
Pt. stated he wasn't sure if he was urinating when going to the bathroom to have a bowel movement. Bladder scanned pt. with highest scan of 13mL in bladder. No obvious distended bladder. Explained to pt. we need to be measuring urine and gave him urinal. Also explained to pt. his kidney function labs are within normal limits. We will continue to monitor urine output and try to get more accurate readings throughout his stay.
[2020-12-28 06:00] VITALS: BP 152/83; PULSE 64; RESP 16; TEMP 36.9; O2SAT 100
[2020-12-28] MEDS: ACETAMINOPHEN 500 MG TABLET PO (06:03)
[2020-12-28 06:30] LABS: Hematocrit 34.7 % (42.0-52.0); Hemoglobin 11.2 g/dL (14.0-18.0); Mean Corpuscular HGB Conc 32.3 g/dl (32-36); Mean Corpuscular Hemoglobin 29.2 pg (26-34); Mean Corpuscular Volume 90.6 fl (80-100); Mean Platelet Volume 9.9 fl (7.4-10.4); Platelet Count Result 194 k/mm3 (150-375); Red Blood Count 3.83 M/mm3 (4.6-6.20); Red Cell Distribution Width 13.2 % (11.5-14.5)
[2020-12-28] MEDS: FAMOTIDINE 20 MG TABLET PO (08:25)
[2020-12-28] MEDS: ROSUVASTATIN 10 MG TABLET 20 MG PO (08:25)
== END 2020-12-28 10:25 | disposition home or self-care (01) | DRG 331 ==
LOC: ANH3MED 16:33
PROVIDERS: Admitting Provider Surgery; PCP Family Medicine; Visit Provider Surgery
PROC: 0DTF4ZZ Resection of Right Large Intestine, Percutaneous Endoscopic Approach (ICD-10-PCS; CPT 44204; principal; 2020-12-25 10:30)
DX: C18.1 Malignant neoplasm of appendix (principal); Z20.822 Contact with and (suspected) exposure to COVID-19; E78.5 Hyperlipidemia, unspecified; E66.9 Obesity, unspecified; Z68.30 Body mass index [BMI] 30.0-30.9, adult; Z87.891 Personal history of nicotine dependence; Z90.49 Acquired absence of other specified parts of digestive tract
CPT/HCPCS: 36415; 80048; 85027; 87426; 88309; A9270; C9803; J0690; J1650; J1885; J2250; J2270; J3010; J7120

== ENCOUNTER 2020-12-29 08:34 | Outpatient (CLI) | payer OTHER, SELFPAY ==
[2020-12-29 09:03] LABS: Hematocrit 32.3 % (42.0-52.0); Hemoglobin 10.6 g/dL (14.0-18.0); Mean Corpuscular HGB Conc 32.8 g/dl (32-36); Mean Corpuscular Volume 88.3 fl (80-100); Mean Platelet Volume 9.4 fl (7.4-10.4); Platelet Count Result 256 k/mm3 (150-375); Red Blood Count 3.66 M/mm3 (4.6-6.20); Red Cell Distribution Width 12.9 % (11.5-14.5); White Blood Count 10.3 K/mm3 (4.5-10.0)
== END 2020-12-29 08:35 | disposition home or self-care (01) ==
PROVIDERS: PCP Family Medicine; Visit Provider Surgery
DX: K62.5 Hemorrhage of anus and rectum (principal)
CPT/HCPCS: 36415; 85027

== ENCOUNTER 2020-12-29 08:37 | Outpatient (CLI) | payer OTHER, SELFPAY ==
[2020-12-29 09:16] LABS: Alanine Aminotransferase 40 U/L (4-50); Cholesterol 119 mg/dL (0-200); Creatine Kinase < 20 U/L (55-170); HDL Direct 25 mg/dL; Triglycerides 271 mg/dL (<150)
[2020-12-29 09:27] LABS: LDL Cholesterol Direct 42 mg/dL
== END 2020-12-29 08:38 | disposition home or self-care (01) ==
PROVIDERS: PCP Family Medicine; Visit Provider Nurse Practitioner Family
DX: E78.5 Hyperlipidemia, unspecified (principal)
CPT/HCPCS: 36415; 80061; 82550; 84460

== ENCOUNTER 2021-01-20 08:49 | Outpatient (CLI) | payer OTHER, SELFPAY ==
[2021-01-20 09:04] LABS: Basophils Percent Auto 0.5 % (0.2-1.2); Eosinophils Absolute Auto 0.2 K/mm3 (0-0.3); Eosinophils Percent Auto 2.8 % (0-4.4); Hematocrit 39.2 % (42.0-52.0); Hemoglobin 12.2 g/dL (14.0-18.0); Immature Granulocyte Absolute 0.03 K/mm3 (0.00-0.031); Immature Granulocyte Percent A 0.5 % (0-0.5); Lymphocytes Percent Auto 20.2 % (18.3-44.2); Mean Corpuscular HGB Conc 31.1 g/dl (32-36); Mean Corpuscular Volume 89.9 fl (80-100); Mean Platelet Volume 9.2 fl (7.4-10.4); Monocytes Absolute Auto 0.6 K/mm3 (0.1-0.6); Monocytes Percent Auto 9.3 % (2.6-8.5); Neutrophils Absolute Auto 4.3 K/mm3 (1.3-6.7); Neutrophils Percent Auto 66.7 % (45.5-73.1); Platelet Count Result 227 k/mm3 (150-375); Red Blood Count 4.36 M/mm3 (4.6-6.20); Red Cell Distribution Width 14.1 % (11.5-14.5); White Blood Count 6.5 K/mm3 (4.5-10.0)
== END 2021-01-20 08:50 | disposition home or self-care (01) ==
PROVIDERS: PCP Family Medicine; Visit Provider Surgery
DX: C18.1 Malignant neoplasm of appendix (principal); D64.9 Anemia, unspecified
CPT/HCPCS: 36415; 85025

== ENCOUNTER 2021-12-02 10:53 | Outpatient (CLI) | payer OTHER, SELFPAY ==
--- NOTE | ~2021-12-02 | XR_ITS ---
EXAMINATION: XR chest 2V 12/02/2021 11:50 INDICATION: Shortness of breath PROCEDURE: PA and lateral views of the chest COMPARISON: 12/08/2007 FINDINGS: The lungs are clear. The cardiomediastinal silhouette is within normal limits. There are no pleural effusions. There is no pneumothorax suspected. Calcified mediastinal lymph nodes, consis tent with chronic granulomatous disease. IMPRESSION: 1: NO ACUTE CARDIOPULMONARY DISEASE. Reviewed, dictated and finalized at location A.
--- NOTE | 2021-12-02 11:06 | ECG_ITS ---
Measurements Intervals [place] Rate: 60 P: -22 VT: 120 QRS: -46 QRSD: 102 T: 25 QT: 383 QTc: 383 Interpretive Statements SINUS RHYTHM BASELINE ARTIFACT LEFT ANTERIOR FASCICULAR BLOCK [QRS AXIS <= -45, QR IN I, RS IN II] DIFFUSE ST ELEVATION, PROBABLY EARLY REPOLARIZATION [ST ELEVATION WITH NORMALLY INFLECTED T WAVE] COMPARED TO ECG 12/16/2020 08:49:50 LEFT ANTERIOR FASCICULAR BLOCK NOW PRESENT Electronically Signed On 12-02-2021 11:45:58 CDT by Erich Monroy M.D.
--- NOTE | 2021-12-02 11:10 | EST_ITS ---
Patient Info Name: Jules Rodríguez Age: 51 years : 1970 Gender: Male Ht: 77 in Wt: 250 lbs BSA: 2.50 m2 HR: 64 bpm BP: 138 / 94 mmHg Heart Rhythm: Sinus Rhythm Exam Date: 12/02/2021 11:19 AM Exam Location: [facility] Stress Patient Status: Outpatient Admit Date: 12/02/2021 Staff Ordering Physician: Shiloh Larios Attending Provider: Shiloh Larios Exercise Technologist: Karen Marshall, CT Exercise Physician: Gurvinder Meza DO Exam Type: CA stress test treadmill Study Info Indications R06.02 - Shortness of breath An exercise stress test was performed. Summary 1. 1. Negative Denny exercise stress test for ischemic ST changes by ECG criteria. 2. 2. Reduced functional capacity, achieving 9 METs of workload. 3. 3. Hypertensive response to exercise. 4. 4. Appropriate HR response to exercise. 5. 5. Appropriate HR recovery at 1 minute post exercise. 6. 6. No imaging with stress testing. 7. 7. Patient informed of the above results. Protocol: Denny Rest HR: 64 bpm Peak HR: 153 bpm Rest Sys BP: 138 mmHg Peak Sys BP: 229 mmHg Max Pred HR: 170 bpm % Max Pred HR: 90 % Target HR: 145 bpm Max RPP: 35,037 bpm*mmHg BP Response: Patient exhibited a hypertensive response with stress Termination Reason: Reached target heart rate or workload Cardiac Symptoms: Shortness of breath Max ST Seg Deviation: -3.10 mm Total Time: 7 min : 30 sec Rest Steinberg BP: 94 mmHg Peak Steinberg BP: 105 mmHg Total METS: 9.0 Resting ECG Sinus rhythm, cannot r/o septal infarct, age indeterminate. Stress ECG No ST changes. Arrhythmias None. Report Signatures
[2021-12-02 12:07] LABS: Basophils Absolute Auto 0.1 K/mm3 (0.0-0.1); Basophils Percent Auto 0.7 % (0.2-1.2); Eosinophils Absolute Auto 0.1 K/mm3 (0-0.3); Eosinophils Percent Auto 1.5 % (0-4.4); Hematocrit 46.6 % (42.0-52.0); Hemoglobin 15.8 g/dL (14.0-18.0); Immature Granulocyte Absolute 0.04 K/mm3 (0.00-0.031); Immature Granulocyte Percent A 0.5 % (0-0.5); Lymphocytes Absolute Auto 1.79 K/mm3 (0.9-3.2); Lymphocytes Percent Auto 20.3 % (18.3-44.2); Mean Corpuscular HGB Conc 33.9 g/dl (32-36); Mean Corpuscular Hemoglobin 29.9 pg (26-34); Mean Corpuscular Volume 88.1 fl (80-100); Mean Platelet Volume 9.4 fl (7.4-10.4); Monocytes Absolute Auto 0.7 K/mm3 (0.1-0.6); Monocytes Percent Auto 7.7 % (2.6-8.5); Neutrophils Absolute Auto 6.1 K/mm3 (1.3-6.7); Neutrophils Percent Auto 69.3 % (45.5-73.1); Platelet Count Result 222 k/mm3 (150-375); Red Blood Count 5.29 M/mm3 (4.6-6.20); Red Cell Distribution Width 12.8 % (11.5-14.5); White Blood Count 8.8 K/mm3 (4.5-10.0)
[2021-12-02 12:36] LABS: NT Pro B Type Natriuretic Pept 66 pg/mL (5-100)
[2021-12-02 12:40] LABS: LDL Cholesterol Direct 34 mg/dL
[2021-12-02 12:45] LABS: Alanine Aminotransferase 41 U/L (6-50); Albumin Level 4.8 g/dL (3.5-5.1); Alkaline Phosphatase 96 U/L (38-126); Anion Gap 11 mmol/L (8-16); Aspartate Amino Transferase 48 U/L (17-59); Bilirubin,Total 0.6 mg/dL (0.2-1.3); Blood Urea Nitrogen 10 mg/dL (9-20); Carbon Dioxide 22 mmol/L (22-30); Chloride 105 mmol/L (98-107); Cholesterol 240 mg/dL (0-200); Estimated Glomerular Filt Rate > 60; Glucose 99 mg/dL (65-110); HDL Direct 33 mg/dL; Potassium 4.5 mmol/L (3.4-5.0); Sodium 138 mmol/L (137-145)
[2021-12-02 12:50] LABS: Triglycerides 1279 mg/dL (<150)
[2021-12-02 12:58] LABS: Prostate Specific Antigen 1.9 ng/mL (< OR = 4.0)
== END 2021-12-02 10:54 | disposition home or self-care (01) ==
PROVIDERS: PCP Family Medicine; Visit Provider Physician Assistant Medical
DX: Z12.5 Encounter for screening for malignant neoplasm of prostate (principal); I44.4 Left anterior fascicular block; R06.02 Shortness of breath; Z82.49 Family history of ischemic heart disease and other diseases of the circulatory system; D50.9 Iron deficiency anemia, unspecified
CPT/HCPCS: 36415; 71046; 80053; 80061; 83880; 84153; 84443; 85025; 93005; 93017; G0103

== ENCOUNTER 2022-03-15 13:24 | Emergency (ER) | payer OTHER, SELFPAY ==
[2022-03-15 13:39] VITALS: BP 156/93; PULSE 80; RESP 18; TEMP 36.4; O2SAT 100
--- NOTE | 2022-03-15 14:52 | ED.EYEPROB ---
HPI - Eye Problem General Chief complaint: Eye Problems Stated complaint: eye problem Time Seen by Provider: 03/15/22 14:35 History of Present Illness HPI Narrative: 52-year-old male presents emergency room for evaluation of possible foreign body to his left eye. Patient states he was cutting wood 4 days ago feels like there is splinter might of flew up into his eye. Patient states he spent the weekend irrigating his eye. States initially he was having difficulty seeing and was photophobic. On presentation today, states the pain is significantly improved and denies having any visual changes or visual loss Related Data Allergies Allergy/AdvReac Type Severity Reaction Status Date / Time crestor AdvReac Intermediate Muscle Pain Uncoded 03/15/22 14:37 Review of Systems Review of Systems: CONSTITUTIONAL: Denies fever, chills, or sweats. EYES: Reports left eye pain ENT: Denies rhinorrhea, congestion, sore throat, or otalgia. CARDIOVASCULAR: Denies chest pain, palpitations, or edema. RESPIRATORY: Denies cough or dyspnea. GASTROINTESTINAL: Denies abdominal pain, nausea, vomiting, or diarrhea. GENITOURINARY: Denies dysuria or hematuria. SKIN: Denies rash or itching. MUSCULOSKELETAL: Denies back pain, joint pain, or myalgia. NEUROLOGIC: Denies headache, numbness, dizziness, or weakness. PSYCHIATRIC: Denies anxiety or depression. [facility] Past Medical History Medical History BMI 29.0-29.9,adult BMI 32.0-32.9,adult COVID-19 ETOH abuse Hyperlipidemia Surgical History Surgical History H/O colectomy 12/06/23 Hand access laparoscopic right colectomy History of laparoscopic appendectomy Status post surgical removal of nail matrix of toe Family History Family History Grandparent Cerebrovascular accident Malignant neoplasm of prostate Father Family history of coronary artery disease Acute myocardial infarction Mother No problems noted. 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 HEAD: Normocephalic, atraumatic. EYES: Conjunctivae normal, PERRLA and EOMI. no foreign body or corneal abrasion noted after fluorescein stain ENT: External nose normal, Nares clear, no rhinorrhea or epistaxis. Mucous membranes moist. Oropharynx without tonsillar hypertrophy exudate or other lesions. External ears normal, bilateral TMs normal bilaterally CHEST: Clear to auscultation. No respiratory distress. No wheezes rales or rhonchi. No tenderness. HEART: Regular rate and rhythm. No murmur heard. Normal peripheral pulses. EXTREMITIES: Normal range of motion. No edema. No clubbing or cyanosis SKIN: Warm, dry, no rash. No noted wounds NEURO: No focal deficits. Alert and oriented x3. MAEW. CN's II-XI intact bilaterally, normal gait PSYCH: Cooperative. Normal mood and affect. Course Course Emergency Course: 1445: Left eye
[2022-03-15] MEDS: TETANUS,DIPHTHERIA,AC PERTUSSIS ADULT (0.5 ML) BOOSTRIX IM (15:03)
== END 2022-03-15 15:06 | disposition home or self-care (01) ==
LOC: ANHED 15:04
PROVIDERS: Emergency Provider Nurse Practitioner Family; PCP Family Medicine
DX: S05.02XA Injury of conjunctiva and corneal abrasion without foreign body, left eye, initial encounter (principal); X58.XXXA Exposure to other specified factors, initial encounter; E78.5 Hyperlipidemia, unspecified; Z90.49 Acquired absence of other specified parts of digestive tract; Z87.891 Personal history of nicotine dependence; F12.90 Cannabis use, unspecified, uncomplicated; Z79.51 Long term (current) use of inhaled steroids; Z23 Encounter for immunization
CPT/HCPCS: 90471; 90715; 99283; A9270

== ENCOUNTER 2023-04-26 07:53 | Outpatient (CLI) | payer OTHER, SELFPAY ==
[2023-04-26 08:34] LABS: Hematocrit 45.6 % (42.0-52.0); Hemoglobin 14.7 g/dL (14.0-18.0); Mean Corpuscular HGB Conc 32.2 g/dl (32-36); Mean Corpuscular Hemoglobin 29.6 pg (26-34); Mean Corpuscular Volume 91.8 fl (80-100); Mean Platelet Volume 9.9 fl (7.4-10.4); Platelet Count Result 187 k/mm3 (150-375); Red Blood Count 4.97 M/mm3 (4.6-6.20); White Blood Count 6.7 K/mm3 (4.5-10.0)
[2023-04-26 08:51] LABS: Alanine Aminotransferase 30 U/L (6-50); Albumin Level 4.3 g/dL (3.5-5.1); Alkaline Phosphatase 76 U/L (38-126); Anion Gap 7 mmol/L (8-16); Aspartate Amino Transferase 30 U/L (17-59); Bilirubin,Total 0.7 mg/dL (0.2-1.3); Blood Urea Nitrogen 12 mg/dL (9-20); Carbon Dioxide 24 mmol/L (22-30); Chloride 107 mmol/L (98-107); Cholesterol 190 mg/dL (0-200); Estimated Glomerular Filt Rate > 60; Glucose 109 mg/dL (65-110); HDL Direct 30 mg/dL; Potassium 3.9 mmol/L (3.4-5.0); Sodium 138 mmol/L (137-145); Triglycerides 513 mg/dL (<150)
[2023-04-26 09:01] LABS: LDL Cholesterol Direct 60 mg/dL
== END 2023-04-26 07:54 | disposition home or self-care (01) ==
PROVIDERS: PCP Family Medicine; Visit Provider Nurse Practitioner Family
DX: K92.1 Melena (principal); E78.00 Pure hypercholesterolemia, unspecified
CPT/HCPCS: 36415; 80053; 80061; 85027

== ENCOUNTER → 2024-03-12 15:34 | Outpatient (REF) | payer OTHER, SELFPAY | LOC: ANHLAB 15:34 | PROVIDERS: PCP Family Medicine; Visit Provider Plastic Surgery | DX: L72.3 Sebaceous cyst (principal) | CPT/HCPCS: 88305 ==

== ENCOUNTER 2024-04-11 08:16 | Outpatient (CLI) | payer OTHER, SELFPAY ==
[2024-04-11 08:59] LABS: Hematocrit 47.9 % (42.0-52.0); Mean Corpuscular HGB Conc 33.4 g/dl (32-36); Mean Corpuscular Hemoglobin 30.2 pg (26-34); Mean Corpuscular Volume 90.4 fl (80-100); Mean Platelet Volume 9.8 fl (7.4-10.4); Platelet Count Result 188 k/mm3 (150-375); White Blood Count 6.3 K/mm3 (4.5-10.0)
[2024-04-11 09:29] LABS: LDL Cholesterol Direct 32 mg/dL
[2024-04-11 09:30] LABS: Alanine Aminotransferase 47 U/L (6-50); Albumin Level 4.4 g/dL (3.5-5.1); Alkaline Phosphatase 91 U/L (38-126); Anion Gap 6 mmol/L (4-12); Aspartate Amino Transferase 47 U/L (17-59); Bilirubin,Total 0.5 mg/dL (0.2-1.3); Blood Urea Nitrogen 13 mg/dL (9-20); Calcium 8.8 mg/dL (8.4-10.2); Carbon Dioxide 28 mmol/L (22-30); Chloride 105 mmol/L (98-107); Cholesterol 187 mg/dL (0-200); Estimated Glomerular Filt Rate > 60; Glucose 105 mg/dL (65-110); Potassium 4.1 mmol/L (3.4-5.0); Sodium 139 mmol/L (137-145)
[2024-04-11 09:38] LABS: Triglycerides 1145 mg/dL (<150)
[2024-04-11 09:46] LABS: Prostate Specific Antigen 1.8 ng/mL (< OR = 4.0)
== END 2024-04-11 08:17 | disposition home or self-care (01) ==
PROVIDERS: PCP Family Medicine; Visit Provider Nurse Practitioner Family
DX: Z12.5 Encounter for screening for malignant neoplasm of prostate (principal); K92.1 Melena; E78.00 Pure hypercholesterolemia, unspecified; Z13.29 Encounter for screening for other suspected endocrine disorder
CPT/HCPCS: 36415; 80053; 80061; 84153; 84443; 85027

== ENCOUNTER → 2024-04-30 15:23 | Outpatient (REF) | payer OTHER, SELFPAY | LOC: ANHLAB 15:23 | PROVIDERS: PCP Family Medicine; Visit Provider Plastic Surgery | DX: L72.3 Sebaceous cyst (principal) | CPT/HCPCS: 88305 ==

== ENCOUNTER → 2024-05-14 15:10 | Outpatient (REF) | payer OTHER, SELFPAY | LOC: ANHLAB 15:10 | PROVIDERS: PCP Family Medicine; Visit Provider Plastic Surgery | DX: L72.3 Sebaceous cyst (principal) | CPT/HCPCS: 88305 ==

== ENCOUNTER → 2024-07-10 15:40 | Outpatient (REF) | payer OTHER, SELFPAY | LOC: ANHLAB 15:40 | PROVIDERS: PCP Family Medicine; Visit Provider Plastic Surgery | DX: L72.0 Epidermal cyst (principal) | CPT/HCPCS: 88305 ==

== ENCOUNTER 2024-12-06 11:41 | Emergency (ER) | payer OTHER, SELFPAY ==
--- NOTE | 2024-12-06 11:42 | ED.SKABFB ---
HPI - Skin/Abscess/Foreign Bdy General Chief complaint: Unspecified Stated complaint: Skin/Abscess/Foreign Body Time Seen by Provider: 12/06/24 11:42 Source: patient Mode of arrival: ambulatory Limitations: no limitations History of Present Illness HPI narrative: Jules is a 54-year-old male patient presenting to the clinic today with complaints of possible hemorrhoid-rectal pain. States symptoms started on Tuesday after he was mowing the grass. Gotten shower noticed a bump and thinks it may be a hemorrhoid sticking out. Area has been increasingly getting more painful and he is having difficulty sitting. No fevers, chills, or body aches. Rates his pain 02/10 currently Related Data Allergies Allergy/AdvReac Type Severity Reaction Status Date / Time rosuvastatin (From Crestor) Allergy Severe Diarrhea Verified 12/06/24 11:53 Review of Systems Review of Systems: Pertinent positives per HPI. Patient denies any fever, chills, rash, headache, visual changes, dizziness, cough, runny nose, sore throat, shortness of breath, chest pain, palpitations, nausea, vomiting, diarrhea, constipation, abdominal pain, or any urinary issues. [facility] Past Medical History Medical History Infected sebaceous cyst of skin COVID-19 BMI 29.0-29.9,adult BMI 30.0-30.9,adult Iron deficiency anemia Abnormal CK Rectal bleeding Swelling of left wrist Left wrist injury (~12/04/20) Pre-op exam Mucinous adenocarcinoma of appendix ETOH abuse BMI 31.0-31.9,adult Hyperlipidemia BMI 32.0-32.9,adult Cutaneous horn Elevated blood pressure reading Elevated cholesterol Epidermal inclusion cyst Surgical History Surgical History H/O colectomy 12/06/23 Hand access laparoscopic right colectomy History of laparoscopic appendectomy Status post surgical removal of nail matrix of toe Family History Family History Grandparent Cerebrovascular accident Malignant neoplasm of prostate Father Family history of coronary artery disease Acute myocardial infarction Mother No problems noted. Sibling IBS (irritable bowel syndrome) Other Family history of cardiovascular disease Family history of malignant neoplasm Social History Social History Smoking packs per day: 1.5 Smoking cigarettes per day: 30.0 Years smoked: 24 Smoking pack-years: 36.00 Smoking status: Former smoker Tobacco type: cigarettes Second hand tobacco smoke exposure: Yes Smoking end date: 01/02/16 Alcohol intake: current Drinks per week: 60 Alcohol use details: BEER Substance use: current Substance use type: marijuana Living arrangements: with family Additional living arrangements comments: [place] Occupation/Education: occupation 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 There is no relevant family history pertinent to the patient complaint. Exam Narrative: General: Well-developed, well nourished, in no apparent distress. Head: Normocephalic, atraumatic. Cardio: Regular rate and rhythm, s1 and s2 normal, no murmur appreciated. Resp: Clear to auscultation bilaterally, no rhonchi, rales, wheezing or rubs. Abdomen: Soft, pliable, bowel sounds present in all quadrants, non-tender to palpation, no organomegly, no CVAT tenderness. Rectum: Perirectal abscess measuring 2 x 2.5 cm indurated at 10:00 of the rectum. No discharge but pustule head noted, redness, erythema, TTP Course Course Emergency Course: Portions of this record may have been created with voice recognition software. Level of Care: Express Care Visit Vital Signs Vital signs: Vital Signs Temperature 36.3 C L 12/06/24 11:46 Pulse Rate 81 12/06/24 11:46 Respiratory Rate 16 12/06/24 11:46 Blood Pressure 143/90 H 12/06/24 11:46 Pulse Oximetry 100 12/06/24 11:46 Oxygen Delivery Room Air 12/06/24 11:46 Temperature 36.3 C L 12/06/24 11:46 Pulse Rate 81 12/06/24 11:46 Respiratory Rate 16 12/06/24 11:46 Blood Pressure 143/90 H 12/06/24 11:46 Pulse Oximetry 100 12/06/24 11:46 Oxygen Delivery Room Air 12/06/24 11:46 Vital signs reviewed Procedures Abscess I/D leandro-rectal: Date of Incision: 12/06/24 Side (if applicable): left Sedation/analgesia: none Local Anesthetic: lidocaine 1% and with epi Amount of anesthesia used (mL): 3 Technique: incised with #11 blade Amount of fluid expressed (mL): 5 Irrigation: No Packing used?: none I&D Results: Pus and Blood Abcess I&D Additional Comments: Verbal consent obtained for incision and drainage. Risk and benefits explained and patient voiced understanding. Area was cleansed with wound wash. Area was prepped and draped using sterile technique. 27 gauge needle was then used to instill (3) ml of lidocaine with epi into the wound edges. Patient tolerated well and anesthesia was appropriate. An 11 blade scalpel was then used to make a 0.5cm incision over the abscess. Brownish green bloody exudate expressed from cavity. Wound culture obtained and sent to lab. Patient tolerated procedure well. Sterile 4x4s placed MDM - Skin/Abscess/Foreign Bdy MDM Narrative Medical decision making narrative: At the time of visit patient is resting comfortably on the exam table. Patient appears to be nontoxic. Procedures: Incision and drainage of the perirectal abscess was performed in the clinic today. Risk and benefits were reviewed with the patient he voiced understanding and agrees to procedure. Patient tolerated well Labs: Wound culture was obtained and sent to the lab Plan: Patient had perirectal abscess. Incision and drainage was performed in the clinic today. Patient tolerated well. Prescription for Seymour and Augmentin was sent to the pharmacy. Recommend follow-up with PCP or general surgeon in 3 days for wound check. Supportive measures were discussed with the patient and they voiced understanding discharge instructions and agrees to treatment plan. Return precautions reviewed Differential Diagnosis Differential diagnosis: Likely abscess of skin or subcutaneous tissue, cellulitis and insect bites Discharge Plan Discharge Clinical Impression: Abscess, perirectal Patient Disposition: Home Condition: Stable Instructions: Antibiotic Form, Abscess Incision and Drainage (DC) Additional Instructions: Keep area clean and dry Wash daily with soap and water Incision and drainage of perirectal abscess was performed in the clinic today Wound culture was sent to the lab Take Augmentin as prescribed May take Seymour as needed for pain-this medication has Tylenol in it May take Tylenol/Motrin additionally as needed for pain Epsom salt soaks/Sitz baths 3-4 times daily Follow-up with Dr. Mccrary or your PCP in 3 days for a wound check Patient Language: Sri Lankan Prescriptions: New amoxicillin-pot clavulanate 875-125 mg tablet 1 tablet PO Q12H 7 Days Qty: 14 0RF hydrocodone-acetaminophen 5-325 mg tablet 1 tablet PO Q6H PRN (Reason: pain) 3 Days Qty: 12 0RF No Action ezetimibe [Zetia] 10 mg tablet 10 mg PO DAILY Qty: 90 0RF amlodipine 5 mg tablet See Rx Instructions .ROUTE .COMPLEX Qty: 90 0RF Dose Instruction: TAKE 1 TABLET BY MOUTH DAILY FOR HIGH BLOOD PRESSURE Rx Instructions: TAKE 1 TABLET BY MOUTH DAILY FOR HIGH BLOOD PRESSURE Follow-up/Referrals: Pete Landrum MD [Primary Care Provider] - Time of Disposition: 12:20 Quality NIHSS Nursing Documentation ED NIHSS nursing documentation: reviewed/agree
[2024-12-06 11:46] VITALS: BP 143/90; PULSE 81; RESP 16; TEMP 36.3; O2SAT 100
[2024-12-06] MEDS: LIDO 1%/EPINEPHRINE 1:100,000 20 ML VIAL 5 ML INFILTRATE (12:09)
--- OUTSIDE RECORDS SUMMARY | 2024-12-06 12:39 | XMS_ITS | Referral Summary ---
Author Organization [facility] Address [address] [place] [address] Care Team Providers Care Assembler [employer] Name Role Phone Pete Landrum MD Primary Care Provider [phone] Allergies No known active allergies Medications albuterol HFA (PROVENTIL HFA,VENTOLIN HFA,PROAIR HFA) 90 mcg/actuation inhaler Inhale 2 puffs every 6 (six) hours as needed Active lisinopriL (PRINIVIL,ZESTR IL) 10 mg tablet Take 1 tablet (10 mg total) by mouth daily 30 tablet 11 06/04/2022 Active amLODIPine (NORVASC) 5 mg tablet TAKE 1 TABLET BY MOUTH DAILY FOR HIGH BLOOD PRESSURE 04/11/2024 Active cyclobenzaprine (FLEXERIL) 10 mg tablet Take 1 tablet (10 mg total) by mouth 2 (two) times a day as needed 05/28/2024 Active ezetimibe (ZETIA) 10 mg tablet Take 1 tablet (10 mg total) by mouth daily 04/11/2024 Active Active Problems Problem Noted Date Diagnosed Date Hypertriglyceridemia 09/13/2024 Shortness of breath 06/04/2022 SRUTHI (obstructive sleep apnea) 06/04/2022 Mixed hyperlipidemia 06/04/2022 Family history of ischemic h eart disease and other diseases of the circulatory system 06/04/2022 History of tobacco abuse 06/04/2022 Chronic fatigue 06/04/2022 ETOH abuse 06/04/2022 Statin intolerance 06/04/2022 Primary hypertension 06/04/2022 Social History Tobacco Use Types Packs/Day Years Used Date Smoking Tobacco: Former Cigarettes Passive Smoke Exposure: Never Smokeless Tobacco: Never Tobacco Cessation:Counseling Given: No Sex and Gender Information Value Date Recorded Sex Assigned at Not on file Legal Sex Male 9:57 AM CDT Gender Identity Not on file Sexual Orientation Not on file Last Filed Vital Signs Vital Sign Reading Time Taken Comments Blood Pressure 140/90 06/15/2024 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 Pulse 83 06/15/2024 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 Temperature 37 C (98.6 F) 12/04/2020 9:58 AM CDT Respiratory Rate 15 12/04/2020 9:58 AM CDT Oxygen Saturation 95% 06/15/2024 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
--- OUTSIDE RECORDS SUMMARY | 2024-12-06 12:39 | XMS_ITS | Continuity of Care Document ---
Author Organization [facility] Address [address] [place] [address] [address] [place] [address] Phone Care Team Providers Care Bioinformatician Name Role Phone Niles Andrade DO Unavailable Unavailable Advance Directives Directive Yes / No Effective Date File Name No Information Encounters Encounter Description Practice Location Reason(s) For Visit Diagnoses Date Provider Providers Copied on Encounter [facility], [address], [place], [place], [id number], [place] [phone] [place] No Information Lupe Rodriguez. [address] [facility], [place], [address], [place]. tel: [phone] Family History Family Member Type Diagnosis Age At Onset No Information Payers Payer name Insurance type Covered alliance party ID Authoriza tion(s) No Information Social History Type Description Quantity Date Captured Comments Sex Male Smoking Status No Information Chief Complaint And Reason For Visit No Information Reason For Referral Reason For Referral No Information History Of Present Illness Encounter Date Complaint History Of Prese nt Illness No Information Functional Status Date Functional Assessmen t No Information Instructions Date Instruction Additional Infor mation No Information Assessments Type Assessment Date No Information Patient Care Teams Name Effective Dates (start - stop) Status Members No Information
--- OUTSIDE RECORDS SUMMARY | 2024-12-06 12:39 | XMS_ITS | Clinical Summary ---
Author Organization [facility] Address [address] [place] [address] Care Team Providers Care Multiple Tube Winding Machine Operator Name Role Phone Pete Landrum MD Primary Care Provider [phone] Allergies No known active allergies Medications albuterol [...] 06/04/2022 Statin intolerance 06/04/2022 Primary hypertension 06/04/2022 Surgical History Surgery Date Site/Laterality Comments COLECTOMY LAPAROSCOPIC APPENDECTOMY 12/27/2020 due to cancer Medical History Medical History Date Comments Covid-19 Shortness of breath ETOH abuse Hyperlipidemia Hypertension Acid indigestion Cancer (HCC) Family History Medical History Relation Name Comments Coronary artery disease Father Heart attack Father No Known Problems Mother Relation Name Status Comments Father Mother Alive Social History Tobacco Use Types Packs/Day Years Used Date Smoking Tobacco: Former Cigarettes Passive Smoke Exposure: Never Smokeless Tobacco: Never Tobacco Cessation:Counseling Given: No Sex and Gender Information Value Date Recorded Sex Assigned at Not on file Legal Sex Male 9:57 AM CDT Gender Identity Not on file Sexual Orientation Not on file Obstetrics History Last Filed Vital Signs Vital Sign Reading Time Taken Comments Blood Pressure 140/90 06/15/2024 1:10 PM PROGRAMMING MANAGER Pulse 83 06/15/2024 1:10 PM PROGRAMMING MANAGER Temperature 37 C (98.6 F) 12/04/2020 9:58 AM CDT Respiratory Rate 15 12/04/2020 9:58 AM CDT Oxygen Saturation 95% 06/15/2024 1:10 PM PROGRAMMING MANAGER Inhaled Oxygen Concentration - - Weight 122 kg (269 lb) 06/15/2024 1:10 PM PROGRAMMING MANAGER Height 195.6 cm (6' 5) 08/27/2022 9:52 AM PROGRAMMING MANAGER Body Mass Index 31.9 08/27/2022 9:52 AM PROGRAMMING MANAGER Plan of Treatment Health Maintenance Due Date Last Done Comments Colon Cancer Screening-Colonoscopy 1971 Depression Screening 1971 Hepatitis C Screening 1971 Prostate Cancer Screening-PSA 1971 Hepatitis B Screening 1989 Regular Well Visit/Exam 18-64 1989 Zoster Vaccine (1 of 2) 2021 Influenza Vaccine (Season Ended) 2025 DTaP/Tdap/Td Vaccine (2 - Td or Tdap) 03/15/2032 03/15/2022 Pneumococcal vaccine <65 Aged Out No longer eligible based on patient's age to complete this topic Insurance [facility] H[facility]/PPO Address: [address] [place] [address] [facility] HMO/PPO Address: [place] [address] [facility] HMO/PPO Address: [address] [address] Care Teams Multiple Tube Winding Machine Operator Relationship Specialty Start Date End Date Pete Landrum MD PCP - General Family Medicine 01/25/22
--- OUTSIDE RECORDS SUMMARY | 2024-12-06 12:40 | XMS_ITS | Continuity of Care Document ---
Author Organization [facility] Address [id number] [place] [address] [address] [place] [address] Phone Care Team Providers Care Network Diagnostic Support Specialist Name Role Phone Niles Andrade DO Unavailable Unavailable Advance Directives Directive Yes / No Effective Date File Name No Information Encounters Encounter Description Practice Location Reason(s) For Visit Diagnoses Date Provider Providers Copied on Encounter [facility], [address], [place], [place], [id number], [place] [phone] [facility] [place] No Information Lupe Rodriguez. [address] [facility], [place], [address], [place]. tel: [phone] Family History Family Member Type Diagnosis Age At Onset No Information Payers Payer name Insurance type Covered libertarian ID Authoriza tion(s) No Information Social History [...]
== END 2024-12-06 12:22 | disposition home or self-care (01) ==
PROVIDERS: Emergency Provider Nurse Practitioner Family; PCP Family Medicine
DX: K61.1 Rectal abscess (principal); Z87.891 Personal history of nicotine dependence; E78.00 Pure hypercholesterolemia, unspecified; Z86.16 Personal history of COVID-19
CPT/HCPCS: 46050; 87070; 87075; 87205; 99213; G0463; J2004

== ENCOUNTER 2025-01-08 13:37 | Observation (INO) | payer OTHER, SELFPAY ==
--- NOTE | ~2025-01-08 | XR_ITS ---
XR chest 1V portable Ordering provider: Deyanira Sears MD History: 54 years Male with . FEELING DIZZY AND FOGGY . Comparison: December 02, 2021 FINDINGS: MEDIASTINUM: The cardiac silhouette is not enlarged. Calcified azygos lymph node is seen unchanged. LUNGS: No infiltrates, effusions or pneumothorax. OTHER: No free air under the diaphragm. IMPRESSION: No acute cardiopulmonary pathology. Reviewed, dictated and finalized at location A.
--- NOTE | ~2025-01-08 | CT_ITS ---
EXAM: CT brain wo con - 01/08/2025 15:05 CDT History: 54 years old Male with FEELING FOGGY COMPARISON: 04/07/2014 PROCEDURE: CT of the head without contrast. Axial, sagittal and coronal reformatted planes were rex luated. Automatic exposure control was used for this study. FINDINGS: BRAIN PARENCHYMA: No acute hemorrhage. No mass effect or herniation. Joshi-white matter differentiatio n is maintained. Normal appearance of cortex. VENTRICLES/ EXTRA-AXIAL SPACES: No hydrocephalus or extra-axial fluid collection. EXTRACRANIAL STRUCTURES: No calvarial fracture. IMPRESSION: No evidence for acute intracranial hemorrhage or calvarial fracture. Reviewed, dictated and finalized at location A.
--- OUTSIDE RECORDS SUMMARY | 2025-01-08 13:40 | XMS_ITS | Continuity of Care Document ---
Author Organization [facility] Address [address] [place] [address] [place] [address] Phone Care Team Providers Care Securities Settlement Processor Name Role Phone Niles Andrade DO Unavailable Unavailable Advance Directives Directive Yes / No Effective Date File Name No Information Encounters Encounter Description Practice Location Reason(s) For Visit Diagnoses Date Provider Providers Copied on Encounter [facility], [address], [place], [place], [id number], [place] [phone] [facility] No Information Lupe Rodriguez. [address] [facility], [place], [address], [place]. tel: [phone] Family History Family Member Type Diagnosis Age [...]
--- OUTSIDE RECORDS SUMMARY | 2025-01-08 13:40 | XMS_ITS | Clinical Summary ---
Author Organization [facility] Address [address] [place] [address] Care Team Providers Care Criminal Justice Lawyer Name Role Phone Pete Landrum MD Primary Care Provider [phone] Allergies No known active allergies Medications albuterol [...] Comments Blood Pressure 140/90 06/15/2024 1:10 PM ARCHITECT Pulse 83 06/15/2024 1:10 PM ARCHITECT Temperature 37 C (98.6 F) 12/04/2020 9:58 AM CDT Respiratory Rate 15 12/04/2020 9:58 AM CDT Oxygen Saturation 95% 06/15/2024 1:10 PM ARCHITECT Inhaled Oxygen Concentration - - Weight 122 kg (269 lb) 06/15/2024 1:10 PM ARCHITECT Height 195.6 cm (6' 5) 08/27/2022 9:52 AM ARCHITECT Body Mass Index 31.9 08/27/2022 9:52 AM ARCHITECT Plan of Treatment Health Maintenance Due Date Last Done Comments Colon Cancer Screening-Colonoscopy 1971 Depression Screening 1971 Hepatitis C Screening 1971 Prostate Cancer Screening-PSA 1971 Hepatitis B Screening 1989 Regular Well Visit/Exam 18-64 1989 Zoster Vaccine (1 of 2) 2021 Influenza Vaccine (#1) 2025 DTaP/Tdap/Td Vaccine (2 - Td or Tdap) 03/15/2032 03/15/2022 Pneumococcal vaccine <65 Aged Out No longer eligible based on patient's age to complete this topic Insurance [facility] Care Teams Criminal Justice Lawyer Relationship Specialty Start Date End Date Pete Landrum MD PCP - General Family Medicine 01/25/22
--- OUTSIDE RECORDS SUMMARY | 2025-01-08 13:40 | XMS_ITS | Referral Summary ---
Author Organization [facility] Address [address] [place] [address] Care Team Providers Care Dean Of Girls Name Role Phone Pete Landrum MD Primary Care Provider [phone] Allergies No known active allergies Medications albuterol [...] Comments Blood Pressure 140/90 06/15/2024 1:10 PM E LEARNING MANAGER Pulse 83 06/15/2024 1:10 PM E LEARNING MANAGER Temperature 37 C (98.6 F) 12/04/2020 9:58 AM CDT Respiratory Rate 15 12/04/2020 9:58 AM CDT Oxygen Saturation 95% 06/15/2024 1:10 PM E LEARNING MANAGER Inhaled Oxygen Concentration - - Weight 122 kg (269 lb) 06/15/2024 1:10 PM E LEARNING MANAGER Height 195.6 cm (6' 5) 08/27/2022 9:52 AM E LEARNING MANAGER Body Mass Index 31.9 08/27/2022 9:52 AM E LEARNING MANAGER Plan of Treatment Not on file Insurance [facility] H[facility]/PPO Address: [address] [address] [place] [address] [facility] H[facility]/PPO Address: [address] [address] [facility] HMO/PPO Address: [address] [address] Care Teams Dean Of Girls Relationship Specialty Start Date End Date Pete Landrum MD PCP - General Family Medicine 01/25/22
[2025-01-08 13:45] VITALS: BP 185/105; PULSE 60; PULSE 61; RESP 14; RESP 16; TEMP 36.7; O2SAT 99
[2025-01-08 13:57] LABS: Hematocrit 47.0 % (42.0-52.0); Hemoglobin 15.3 g/dL (14.0-18.0); Immature Granulocyte Percent A 0.4 % (0-0.5); Lymphocytes Absolute Auto 1.52 K/mm3 (0.9-3.2); Mean Corpuscular HGB Conc 32.6 g/dl (32-36); Mean Corpuscular Hemoglobin 28.8 pg (26-34); Mean Corpuscular Volume 88.5 fl (80-100); Nucleated Red Blood Cells Absolute Auto 0.000 K/mm3 (0.0-0.012); Nucleated Red Blood Cells Perc 0.0 % (0.0-0.2); Platelet Count Result 181 k/mm3 (150-375); Red Blood Count 5.31 M/mm3 (4.6-6.20); White Blood Count 5.5 K/mm3 (4.5-10.0)
[2025-01-08 14:30] LABS: Alanine Aminotransferase 43 U/L (6-50); Albumin Level 4.3 g/dL (3.5-5.1); Alkaline Phosphatase 94 U/L (38-126); Anion Gap 9 mmol/L (4-12); Aspartate Amino Transferase 36 U/L (17-59); Bilirubin,Total 0.6 mg/dL (0.2-1.3); Blood Urea Nitrogen 10 mg/dL (9-20); Calcium 9.5 mg/dL (8.4-10.2); Carbon Dioxide 24 mmol/L (22-30); Chloride 109 mmol/L (98-107); Estimated CRCL calculation 132 ml/min; Estimated Glomerular Filt Rate > 60; Glucose 103 mg/dL (65-110); Potassium 4.2 mmol/L (3.4-5.0); Sodium 142 mmol/L (137-145); Total Protein 7.9 g/dL (6.3-8.2)
--- NOTE | 2025-01-08 14:48 | ED_ITS ---
HPI - General Adult General Chief complaint: Unspecified <Deyanira Sears MD - Last Filed: 01/09/25 20:16> Stated complaint: blurry vision, woke up like this <Deyanira Sears MD - Last Filed: 01/09/25 20:16> Time Seen by Provider: 01/08/25 14:48 <Deyanira Sears MD - Last Filed: 01/09/25 20:16> Source: patient <Deyanira Sears MD - Last Filed: 01/09/25 20:16> Mode of arrival: ambulatory <Deyanira Sears MD - Last Filed: 01/09/25 20:16> Limitations: no limitations <Deyanira Sears MD - Last Filed: 01/09/25 20:16> History of Present Illness HPI narrative: 54 YEARS OLD WHITE MALE WOKE UP THIS MORNING NOT FEELING WELL, FEELING WOOZY AND FOGGY AND FOREHEAD HEADACHE LIKE PRESSURE TYPE. PATIENT WENT TO WORK, COULD NOT GET HIS HEAD STRAIGHT, FEELING WOBBLY, UNABLE TO CONCENTRATE. DROVE HIM TO THE EMERGENCY ROOM. PATIENT WAS IN HER TO GO TO WORK THIS MORNING, FORGOT TO TAKE HIS BLOOD PRESSURE MEDICATION THIS MORNING. HISTORY OF HYPERTENSION, HYPERLIPIDEMIA, DRINKS OCCASIONALLY, USES MARIJUANA ALMOST DAILY. 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 <Deyanira Sears MD - Last Filed: 01/09/25 20:16> Related Data Allergies/adverse reactions: Allergies Allergy/AdvReac Type Severity Reaction Status Date / Time rosuvastatin (From Crestor) Allergy Severe Diarrhea Verified 12/17/24 14:14 <Deyanira Sears MD - Last Filed: 01/09/25 20:16> [facility] Past Medical History Medical History: Medical History Infected sebaceous cyst of skin COVID-19 BMI 29.0-29.9,adult BMI 30.0-30.9,adult Iron deficiency anemia Abnormal CK Rectal bleeding Swelling of left wrist Left wrist injury (~12/04/20) Pre-op exam Mucinous adenocarcinoma of appendix ETOH abuse BMI 31.0-31.9,adult Hyperlipidemia BMI 32.0-32.9,adult Cutaneous horn Elevated blood pressure reading Elevated cholesterol Epidermal inclusion cyst <Deyanira Sears MD - Last Filed: 01/09/25 20:16> Surgical History Surgical History: Surgical History H/O colectomy 12/06/23 Hand access laparoscopic right colectomy History of laparoscopic appendectomy Status post surgical removal of nail matrix of toe <Deyanira Sears MD - Last Filed: 01/09/25 20:16> Family History Family History: Family History Grandparent Cerebrovascular accident Malignant neoplasm of prostate Father Family history of coronary artery disease Acute myocardial infarction Hypertension Heart disease Mother Hypertension Sibling IBS (irritable bowel syndrome) Other Family history of cardiovascular disease Family history of malignant neoplasm <Deyanira Sears MD - Last Filed: 01/09/25 20:16> Social History Social History: Social History (Updated 01/09/25 @ 14:28 by Shelby Licea PA-C) Social History: Lives at home with and dog. Smoking packs per day: 1.5 Smoking cigarettes per day: 30.0 Years smoked: 24 Smoking pack-years: 36.00 Smoking status: Former smoker Tobacco type: cigarettes Second hand tobacco smoke exposure: No Smoking end date: 01/02/16 Alcohol intake: current Drinks per week: 24 Alcohol use details: BEER Substance use: current Substance use type: marijuana Other substance usage details: none Last use: Tuesday Do You Feel Safe in your Home?: Yes Lack of Transportation: No Lack of Food: Never True Current Housing: I Have Housing Concerned About Future Housing: No Difficulty Paying Gas/Electric Bills: No Difficulty Paying for Meds: No Currently Unemployed: No Education: High School Diploma/GED Difficulty w/ Childcare or Family Care: No Living arrangements: with family Additional living arrangements comments: [place] Occupation/Education: occupation 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 Gender identity (if verbalized by the patient): Male Sexual Orientation (if Verbalized by the Patient): Straight or Heterosexual Spiritual care concerns: No <Deyanira Sears MD - Last Filed: 01/09/25 20:16> Course Vital Signs Vital signs: Vital Signs Temperature 36.7 C 01/08/25 13:45 Pulse Rate 61 01/08/25 13:45 Respiratory Rate 14 01/08/25 13:45 Blood Pressure 185/105 H 01/08/25 13:45 Pulse Oximetry 99 01/08/25 13:45 Oxygen Delivery Room Air 01/08/25 13:45 Temperature 36.7 C 01/09/25 14:28 Pulse Rate 75 01/09/25 16:00 Respiratory Rate 20 01/09/25 14:28 Blood Pressure 157/88 H 01/09/25 14:28 Pulse Oximetry 99 01/09/25 14:28 Oxygen Delivery Room Air 01/09/25 08:40 <Deyanira Sears MD - Last Filed: 01/09/25 20:16> Vital Signs Temperature 36.7 C 01/08/25 13:45 Pulse Rate 61 01/08/25 13:45 Respiratory Rate 14 01/08/25 13:45 Blood Pressure 185/105 H 01/08/25 13:45 Pulse Oximetry 99 01/08/25 13:45 Oxygen Delivery Room Air 01/08/25 13:45 Temperature 36.7 C 01/09/25 14:28 Pulse Rate 75 01/09/25 16:00 Respiratory Rate 20 01/09/25 14:28 Blood Pressure 157/88 H 01/09/25 14:28 Pulse Oximetry 99 01/09/25 14:28 Oxygen Delivery Room Air 01/09/25 08:40 <Davide Lopez MD - Last Filed: 01/08/25 19:48> Medical Decision Making MDM Narrative Medical decision making narrative: PATIENT WOKE UP THIS MORNING FEELING FOGGY, AND EVERYTHING LOOKS WOBBLY VITAL SIGNS SHOWING BLOOD PRESSURE 185/105 OTHERWISE WITHIN NORMAL LIMIT PATIENT FORGOT TO TAKE HIS MORNING BLOOD PRESSURE MEDICINE PHYSICAL EXAMINATION IS UNREMARKABLE DIFFERENTIAL DIAGNOSIS INCLUDE HYPERTENSION RELATED SYMPTOMS, ANXIETY LIKE SYMPTOMS, INTRACRANIAL PATHOLOGY, ELECTROLYTE IMBALANCE, DEHYDRATION, THYROID DISORDER, URINARY TRACT INFECTION, DRUG ABUSE BLOOD WORKUP TODAY INCLUDES CBC, CMP, TROPONIN, TSH SHOWED NO ACUTE ABNORMALITIES CHEST X-RAY SHOWED NO ACUTE ABNORMALITIES CT HEAD WITHOUT CONTRAST SHOWED NO ACUTE ABNORMALITIES PATIENT CARE TURNED OVER TO DR. LOPEZ AT SHIFT CHANGE, AWAITING LABS, AND DISPOSITION. PATIENT BEEN RESTING QUIETLY IN THE EMERGENCY ROOM WITHOUT ANY ISSUES OR PROBLEMS. <Deyanira Sears MD - Last Filed: 01/09/25 20:16> PATIENT WOKE UP THIS MORNING FEELING FOGGY, AND EVERYTHING LOOKS WOBBLY VITAL SIGNS SHOWING BLOOD PRESSURE 185/105 OTHERWISE WITHIN NORMAL LIMIT PATIENT FORGOT TO TAKE HIS MORNING BLOOD PRESSURE MEDICINE PHYSICAL EXAMINATION IS UNREMARKABLE DIFFERENTIAL DIAGNOSIS INCLUDE HYPERTENSION RELATED SYMPTOMS, ANXIETY LIKE SYMPTOMS, INTRACRANIAL PATHOLOGY, ELECTROLYTE IMBALANCE, DEHYDRATION, THYROID DISORDER, URINARY TRACT INFECTION, DRUG ABUSE BLOOD WORKUP TODAY INCLUDES CBC, CMP, TROPONIN, TSH SHOWED NO ACUTE ABNORMALITIES CHEST X-RAY SHOWED NO ACUTE ABNORMALITIES CT HEAD WITHOUT CONTRAST SHOWED NO ACUTE ABNORMALITIES PATIENT CARE TURNED OVER TO DR. LOPEZ AT SHIFT CHANGE, AWAITING LABS, AND DISPOSITION. PATIENT BEEN RESTING QUIETLY IN THE EMERGENCY ROOM WITHOUT ANY ISSUES OR PROBLEMS. [place]: Patient was signed out to me pending urinalysis/UDS. UDS did return back positive for cannabinoids otherwise unremarkable. Urinalysis unremarkable. Patient was informed of these findings at bedside. States that he still feels foggy/hazy. At this time, case was discussed with the on-call neurologist Dr. Klein at 1925 for hospital admission an MRI in the morning and he accepted consultation. Case was discussed with the production director hospitalist Dr. Osborn at 1640 and she accepted admission. Patient was continued on maintenance fluids at 100 cc/hour. <Davide Lopez MD - Last Filed: 01/08/25 19:48> Differential Diagnosis Differential Diagnosis: ABOVE <Deyanira Sears MD - Last Filed: 01/09/25 20:16> Vital Signs Vital Signs: Vital Signs Temperature 36.7 C 01/08/25 13:45 Pulse Rate 61 01/08/25 13:45 Respiratory Rate 14 01/08/25 13:45 Blood Pressure 185/105 H 01/08/25 13:45 Pulse Oximetry 99 01/08/25 13:45 Oxygen Delivery Room Air 01/08/25 13:45 Temperature 36.7 C 01/09/25 14:28 Pulse Rate 75 01/09/25 16:00 Respiratory Rate 20 01/09/25 14:28 Blood Pressure 157/88 H 01/09/25 14:28 Pulse Oximetry 99 01/09/25 14:28 Oxygen Delivery Room Air 01/09/25 08:40 <Deyanira Sears MD - Last Filed: 01/09/25 20:16> Vital Signs Temperature 36.7 C 01/08/25 13:45 Pulse Rate 61 01/08/25 13:45 Respiratory Rate 14 01/08/25 13:45 Blood Pressure 185/105 H 01/08/25 13:45 Pulse Oximetry 99 01/08/25 13:45 Oxygen Delivery Room Air 01/08/25 13:45 Temperature 36.7 C 01/09/25 14:28 Pulse Rate 75 01/09/25 16:00 Respiratory Rate 20 01/09/25 14:28 Blood Pressure 157/88 H 01/09/25 14:28 Pulse Oximetry 99 01/09/25 14:28 Oxygen Delivery Room Air 01/09/25 08:40 <Davide Lopez MD - Last Filed: 01/08/25 19:48> Lab Data Result diagrams: 01/09/25 08:18 01/09/25 08:18 <Deyanira Sears MD - Last Filed: 01/09/25 20:16> Labs: Lab Results 01/08/25 01/08/25 Range/Units 13:50 18:32 WBC 5.5 (4.5-10.0) K/mm3 RBC 5.31 (4.6-6.20) M/mm3 Hgb 15.3 (14.0-18.0) g/dL Hct 47.0 (42.0-52.0) % MCV 88.5 (80-100) fl MCH 28.8 (26-34) pg MCHC 32.6 (32-36) g/dl RDW 13.5 (11.5-14.5) % Plt Count 181 (150-375) k/mm3 MPV 9.7 (7.4-10.4) fl Immature Gran % (Auto) 0.4 (0-0.5) % Neut % (Auto) 58.9 (45.5-73.1) % Lymph % (Auto) 27.5 (18.3-44.2) % [place] % (Auto) 10.5 H (2.6-8.5) % Eos % (Auto) 2.2 (0-4.4) % Baso % (Auto) 0.5 (0.2-1.2) % Lymph # (Auto) 1.52 (0.9-3.2) K/mm3 [place] # (Auto) 0.6 (0.1-0.6) K/mm3 Eos # (Auto) 0.1 (0-0.3) K/mm3 Baso # (Auto) 0.0 (0.0-0.1) K/mm3 Abs Immat Gran (auto) 0.02 (0.00-0.031) K/mm3 Absolute Neuts (auto) 3.3 (1.3-6.7) K/mm3 Absolute Nucleated RBC 0.000 (0.0-0.012) K/mm3 Nucleated RBC % 0.0 (0.0-0.2) % Sodium 142 (137-145) mmol/L Potassium 4.2 (3.4-5.0) mmol/L Chloride 109 H (98-107) mmol/L Carbon Dioxide 24 (22-30) mmol/L Anion Gap 9 (4-12) mmol/L BUN 10 (9-20) mg/dL Creatinine 0.81 (0.7-1.3) mg/dL Estim Creat Clear Calc 132 ml/min Estimated GFR > 60 (59 - ) Glucose 103 (65-110) mg/dL Calcium 9.5 (8.4-10.2) mg/dL Total Bilirubin 0.6 (0.2-1.3) mg/dL AST 36 (17-59) U/L ALT 43 (6-50) U/L Alkaline Phosphatase 94 (38-126) U/L Total Creatine Kinase 157 (55-170) U/L Troponin I < 0.012 (0.000-0.034) ng/mL Total Protein 7.9 (6.3-8.2) g/dL Albumin 4.3 (3.5-5.1) g/dL TSH 2.070 (0.465-4.680) uIU/mL Urine Color Yellow (Yellow) Urine Appearance Clear (Clear) Urine pH 6.5 (5.0-9.0) Ur Specific [place] 1.018 (1.001-1.035) Urine Protein Negative (Negative) mg/dL Urine Glucose (UA) Negative (Negative) mg/dL Urine Ketones Negative (Negative) mg/dL Ur Blood (Man) Negative (Negative) Urine Nitrate Negative (Negative) Urine Bilirubin Negative (Negative) Urine Urobilinogen 0.2 (<2.0) mg/dL Leukocyte Esterase Rfl Negative (Negative) HENOK/UL Urine Opiates Screen Negative (Negative) Urine Methadone Screen Negative (Negative) Ur Barbiturates Screen Negative (Negative) Ur Phencyclidine Scrn Negative (Negative) Ur Amphetamine Screen Negative (Negative) U Benzodiazepines Scrn Negative (Negative) Urine Cocaine Screen Negative (Negative) U Cannabinoids Screen Positive A (Negative) <Deyanira Sears MD - Last Filed: 01/09/25 20:16> Lab Results 01/08/25 01/08/25 Range/Units 13:50 18:32 WBC 5.5 (4.5-10.0) K/mm3 RBC 5.31 (4.6-6.20) M/mm3 Hgb 15.3 (14.0-18.0) g/dL Hct 47.0 (42.0-52.0) % MCV 88.5 (80-100) fl MCH 28.8 (26-34) pg MCHC 32.6 (32-36) g/dl RDW 13.5 (11.5-14.5) % Plt Count 181 (150-375) k/mm3 MPV 9.7 (7.4-10.4) fl Immature Gran % (Auto) 0.4 (0-0.5) % Neut % (Auto) 58.9 (45.5-73.1) % Lymph % (Auto) 27.5 (18.3-44.2) % [place] % (Auto) 10.5 H (2.6-8.5) % Eos % (Auto) 2.2 (0-4.4) % Baso % (Auto) 0.5 (0.2-1.2) % Lymph # (Auto) 1.52 (0.9-3.2) K/mm3 [place] # (Auto) 0.6 (0.1-0.6) K/mm3 Eos # (Auto) 0.1 (0-0.3) K/mm3 Baso # (Auto) 0.0 (0.0-0.1) K/mm3 Abs Immat Gran (auto) 0.02 (0.00-0.031) K/mm3 Absolute Neuts (auto) 3.3 (1.3-6.7) K/mm3 Absolute Nucleated RBC 0.000 (0.0-0.012) K/mm3 Nucleated RBC % 0.0 (0.0-0.2) % Sodium 142 (137-145) mmol/L Potassium 4.2 (3.4-5.0) mmol/L Chloride 109 H (98-107) mmol/L Carbon Dioxide 24 (22-30) mmol/L Anion Gap 9 (4-12) mmol/L BUN 10 (9-20) mg/dL Creatinine 0.81 (0.7-1.3) mg/dL Estim Creat Clear Calc 132 ml/min Estimated GFR > 60 (59 - ) Glucose 103 (65-110) mg/dL Calcium 9.5 (8.4-10.2) mg/dL Total Bilirubin 0.6 (0.2-1.3) mg/dL AST 36 (17-59) U/L ALT 43 (6-50) U/L Alkaline Phosphatase 94 (38-126) U/L Total Creatine Kinase 157 (55-170) U/L Troponin I < 0.012 (0.000-0.034) ng/mL Total Protein 7.9 (6.3-8.2) g/dL Albumin 4.3 (3.5-5.1) g/dL TSH 2.070 (0.465-4.680) uIU/mL Urine Color Yellow (Yellow) Urine Appearance Clear (Clear) Urine pH 6.5 (5.0-9.0) Ur Specific [place] 1.018 (1.001-1.035) Urine Protein Negative (Negative) mg/dL Urine Glucose (UA) Negative (Negative) mg/dL Urine Ketones Negative (Negative) mg/dL Ur Blood (Man) Negative (Negative) Urine Nitrate Negative (Negative) Urine Bilirubin Negative (Negative) Urine Urobilinogen 0.2 (<2.0) mg/dL Leukocyte Esterase Rfl Negative (Negative) HENOK/UL Urine Opiates Screen Negative (Negative) Urine Methadone Screen Negative (Negative) Ur Barbiturates Screen Negative (Negative) Ur Phencyclidine Scrn Negative (Negative) Ur Amphetamine Screen Negative (Negative) U Benzodiazepines Scrn Negative (Negative) Urine Cocaine Screen Negative (Negative) U Cannabinoids Screen Positive A (Negative) <Davide Lopez MD - Last Filed: 01/08/25 19:48> Discharge Plan Discharge Clinical Impression: Blurred vision, Headache <Deyanira Sears MD - Last Filed: 01/09/25 20:16> Patient Disposition: Still a Patient <Deyanira Sears MD - Last Filed: 01/09/25 20:16> Condition: Improved <Deyanira Sears MD - Last Filed: 01/09/25 20:16> Time of Disposition: 19:48 <Deyanira Sears MD - Last Filed: 01/09/25 20:16> 19:48 <Davide Lopez MD - Last Filed: 01/08/25 19:48> Quality Stroke Scale Stroke Scale 1: Stroke scale date:: 01/08/25 <Deyanira Sears MD - Last Filed: 01/09/25 20:16> 1a Level of consciousness: alert-0 <Deyanira Sears MD - Last Filed: 01/09/25 20:16> 1b Level of consciousness questions: answers both correctly-0 <Deyanira Sears MD - Last Filed: 01/09/25 20:16> 1c Level of consciousness commands: obeys both correctly-0 <Deyanira Sears MD - Last Filed: 01/09/25 20:16> 2 Best gaze: normal-0 <Deyanira Sears MD - Last Filed: 01/09/25 20:16> 3 Visual: no visual loss-0 <Deyanira Sears MD - Last Filed: 01/09/25 20:16> 4 Facial palsy: normal-0 <Deyanira Sears MD - Last Filed: 01/09/25 20:16> 5a Motor: left arm: no drift-0 <Deyanira Sears MD - Last Filed: 01/09/25 20:16> 5b Motor: right arm: no drift-0 <Deyanira Sears MD - Last Filed: 01/09/25 20:16> 6a Motor: left leg: no drift-0 <Deyanira Sears MD - Last Filed: 01/09/25 20:16> 6b Motor: right leg: no drift-0 <Deyanira Sears MD - Last Filed: 01/09/25 20:16> 7 Limb ataxia: absent-0 <Deyanira Sears MD - Last Filed: 01/09/25 20:16> 8 Sensory: normal-0 <Deyanira Sears MD - Last Filed: 01/09/25 20:16> 9 Best language: no aphasia-0 <Deyanira Sears MD - Last Filed: 01/09/25 20:16> 10 Dysarthria: normal-0 <Deyanira Sears MD - Last Filed: 01/09/25 20:16> 11 Extinction and inattention: no abnormality-0 <Deyanira Sears MD - Last Filed: 01/09/25 20:16> Level:: 0 <Deyanira Sears MD - Last Filed: 01/09/25 20:16> 0 <Davide Lopez MD - Last Filed: 01/08/25 19:48>
--- NOTE | 2025-01-08 14:49 | ECG_ITS ---
Test Date: 2025-01-08 15:49:47 Measurements Intervals [place] Rate: 69 P: 27 OK: 155 QRS: -44 QRSD: 113 T: 6 QT: 396 QTc: 427 Interpretive Statements SINUS RHYTHM LEFT AXIS DEVIATION [QRS AXIS < -30] POOR R-WAVE PROGRESSION ABNORMAL ECG No previous ECG available for comparison Electronically Signed On 01-09-2025 07:40:42 CDT by Jamie Falcon M.D.
[2025-01-08 15:09] LABS: Creatine Kinase 157 U/L (55-170)
--- OUTSIDE RECORDS SUMMARY | 2025-01-08 15:14 | XMS_ITS | Clinical Summary ---
Author Organization [facility] Address [address] [place] [address] Care Team Providers Care Sofa Cover Inspector Name Role Phone Pete Landrum MD Primary Care Provider [phone] Allergies No known active allergies Medications albuterol [...] Comments Blood Pressure 140/90 06/15/2024 1:10 PM PRODUCTION FOREMAN Pulse 83 06/15/2024 1:10 PM PRODUCTION FOREMAN Temperature 37 C (98.6 F) 12/04/2020 9:58 AM CDT Respiratory Rate 15 12/04/2020 9:58 AM CDT Oxygen Saturation 95% 06/15/2024 1:10 PM PRODUCTION FOREMAN Inhaled Oxygen Concentration - - Weight 122 kg (269 lb) 06/15/2024 1:10 PM PRODUCTION FOREMAN Height 195.6 cm (6' 5) 08/27/2022 9:52 AM PRODUCTION FOREMAN Body Mass Index 31.9 08/27/2022 9:52 AM PRODUCTION FOREMAN Plan of Treatment Health Maintenance Due Date [...] patient's age to complete this topic Insurance [facility] Care Teams Sofa Cover Inspector Relationship Specialty Start Date End Date Pete Landrum MD PCP - General Family Medicine 01/25/22
--- OUTSIDE RECORDS SUMMARY | 2025-01-08 15:14 | XMS_ITS | Continuity of Care Document ---
Author Organization [facility] Address [id number] [place] [address] [place] [address] Phone Care Team Providers Care City Mail Carrier Name Role Phone Niles Andrade DO Unavailable Unavailable Advance Directives Directive Yes / No Effective Date File Name No Information Encounters Encounter Description Practice Location Reason(s) For Visit Diagnoses Date Provider Providers Copied on Encounter [facility], [address], [place], [place], [id number], [place] [phone] [facility] No Information Lupe Rodriguez. [address] [facility], [place], [address], [place]. tel: [phone] Family History Family Member Type Diagnosis Age [...]
--- OUTSIDE RECORDS SUMMARY | 2025-01-08 15:14 | XMS_ITS | Referral Summary ---
Author Organization [facility] Address [address] [place] [address] Care Team Providers Care Cds Sales Advisor Name Role Phone Pete Landrum MD Primary Care Provider [phone] Allergies No known active allergies Medications albuterol [...] Comments Blood Pressure 140/90 06/15/2024 1:10 PM [employer] Pulse 83 06/15/2024 1:10 PM [employer] Temperature 37 C (98.6 F) 12/04/2020 9:58 AM CDT Respiratory Rate 15 12/04/2020 9:58 AM CDT Oxygen Saturation 95% 06/15/2024 1:10 PM [employer] Inhaled Oxygen Concentration - - Weight 122 kg (269 lb) 06/15/2024 1:10 PM [employer] Height 195.6 cm (6' 5) 08/27/2022 9:52 AM [employer] Body Mass Index 31.9 08/27/2022 9:52 AM [employer] Plan of Treatment Not on file Insurance [facility]PPO Address: [facility] [address] [place] [address] [facility]/PPO Address: [address] [address] [facility]/PPO Address: [address] [address] Care Teams Cds Sales Advisor Relationship Specialty Start Date End Date Pete Landrum MD PCP - General Family Medicine 01/25/22
[2025-01-08 15:22] LABS: Troponin I < 0.012 ng/mL (0.000-0.034)
[2025-01-08 16:22] LABS: Thyroid Stimulating Hormone 2.070 uIU/mL (0.465-4.680)
[2025-01-08] MEDS: SODIUM CHLORIDE 0.9% IV 1,000 ML 999 ML IV CONT ×2 (16:41→17:39)
[2025-01-08 17:54] VITALS: BP 181/92; PULSE 72; RESP 16; TEMP 36.8; O2SAT 100
[2025-01-08 18:43] LABS: Add Urine Microscopic? NO; Appearance Urine Clear (Clear); Glucose Urine UA Negative (Negative); Leukocyte Esterase Ur Negative LEU/UL (Negative); Nitrate Urine Negative (Negative); Specific Grav Ur 1.018 (1.001-1.035)
[2025-01-08 18:58] LABS: Cannabinoid Screen Urine Positive (Negative)
[2025-01-08 21:04] VITALS: BP 167/99; PULSE 63; RESP 16; TEMP 36.8; O2SAT 99
[2025-01-08] MEDS: SODIUM CHLORIDE 0.9% IV 1,000 ML 100 ML IV CONT (21:04)
[2025-01-08 21:52] VITALS: BP 167/107; PULSE 67; RESP 16; TEMP 36.7; O2SAT 99
[2025-01-08 22:09] VITALS: BMI 29.7
[2025-01-08 22:17] VITALS: BP 187/98; PULSE 55; RESP 20; TEMP 36.3; O2SAT 100
--- NOTE | 2025-01-08 23:25 | ADMGEN ---
This patient, Jules Rodríguez, was admitted to Medical Room 249-01. Patient/family oriented to hospital policies and general routines including ID bracelet, bed and alarms, visiting hours, pain management, procedures, bathroom and other care routines, personal items, smoking policy, room service/diet, and visiting hours. Information on how to activate the Rapid Response Team has been discussed. Patient/Family are encouraged to report perceived risks to care and to ask questions if they do not understand what they are told or what they should do.
[2025-01-09] VITALS (11 sets, daily range): BP systolic 147–176; BP diastolic 88–91; PULSE 58–81; RESP 20; TEMP 36.3–36.7; O2SAT 95–99
--- NOTE | 2025-01-09 07:38 | PM.IMHP ---
H&P: HPI History of Present Illness Date/Time: 01/09/25 07:38 Chief Complaint: blurred vision and headache Narrative: 54 year old male with past medical history of mucinous adenocarcinoma of appendix s/p appendectomy, hypertension and hyperlipidemia presents to the hospital for headache and blurred vision. He states that yesterday morning when he work up his vision was blurry and 'hazy with a headache behind his eyes. Denies trauma. He noticed increased dizziness at the time and felt increasingly off balance. He was able to drive into work but continued to feel foggy and called his to take him to the hospital. He denies any associated weakness/tingling/numbness, slurred speech, leaning to either direction. He denies any cardiac history or similar episodes prior. He notes that he has not taken his amlodipine since Tuesday because he forgot it when he went to the [place]. He has not since checked his blood pressure but he notes that it typically runs in the 150s systolic. He denies any recent changes to medications. He denies any chest pain, shortness of breath, palpitations, nausea/vomiting and abdominal pain. ED workup: CBC with WBC 5.5, H/H 15.3/47, PLT 181. CMP with Na 142, K 4.2. BUN/Cr 10/0.81 with GFR >60. LFTs WNL. Troponin negative. UA unremarkable. Toxicology positive for cannabinoids. Chest XR showed no acute cardiopulmonary pathology. Head CT showed no evidence of acute intracranial hemorrhage or calvarial fracture. Review of Systems Review of Systems: All systems reviewed & are unremarkable except as noted in HPI and below PMFSH Past Medical History Medical History Infected sebaceous cyst of skin COVID-19 BMI 29.0-29.9,adult BMI 30.0-30.9,adult Iron deficiency anemia Abnormal CK Rectal bleeding Swelling of left wrist Left wrist injury (~12/04/20) Pre-op exam Mucinous adenocarcinoma of appendix ETOH abuse BMI 31.0-31.9,adult Hyperlipidemia BMI 32.0-32.9,adult Cutaneous horn Elevated blood pressure reading Elevated cholesterol Epidermal inclusion cyst Surgical History Surgical History H/O colectomy 6/4/24/21 Hand access laparoscopic right colectomy History of laparoscopic appendectomy Status post surgical removal of nail matrix of toe Family History Family History Grandparent Cerebrovascular accident Malignant neoplasm of prostate Father Family history of coronary artery disease Acute myocardial infarction Hypertension Heart disease Mother Hypertension Sibling IBS (irritable bowel syndrome) Other Family history of cardiovascular disease Family history of malignant neoplasm Social History Social History (Updated 01/09/25 @ 14:28 by Shelby Licea PA-C) Social History: Lives at home with and dog. Smoking packs per day: 1.5 Smoking cigarettes per day: 30.0 Years smoked: 24 Smoking pack-years: 36.00 Smoking status: Former smoker Tobacco type: cigarettes Second hand tobacco smoke exposure: No Smoking end date: 01/02/16 Alcohol intake: current Drinks per week: 24 Alcohol use details: BEER Substance use: current Substance use type: marijuana Other substance usage details: none Last use: Tuesday Do You Feel Safe in your Home?: Yes Lack of Transportation: No Lack of Food: Never True Current Housing: I Have Housing Concerned About Future Housing: No Difficulty Paying Gas/Electric Bills: No Difficulty Paying for Meds: No Currently Unemployed: No Education: High School Diploma/GED Difficulty w/ Childcare or Family Care: No Living arrangements: with family Additional living arrangements comments: [place] Occupation/Education: occupation 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 Gender identity (if verbalized by the patient): Male Sexual Orientation (if Verbalized by the Patient): Straight or Heterosexual Spiritual care concerns: No Meds Home Medications and Allergies Home Medications ?Medication ?Instructions ?Recorded ?Confirmed ?Type amoxicillin 875 mg-potassium 1 tablet PO Q12H 7 days #14 tabs 12/06/24 12/17/24 Rx clavulanate 125 mg tablet hydrocodone 5 mg-acetaminophen 325 1 tablet PO Q6H PRN pain 3 days 12/06/24 12/17/24 Rx mg tablet #12 tabs amlodipine 5 mg tablet See Rx Instructions .Route 01/03/25 01/08/25 Rx .COMPLEX #90 tabs ezetimibe 10 mg tablet (Zetia) 10 mg PO DAILY #90 tabs 01/03/25 Rx Allergies Allergy/AdvReac Type Severity Reaction Status Date / Time rosuvastatin (From Crestor) Allergy Severe Diarrhea Verified 12/17/24 14:14 Vital Signs Vital Signs - 24 hr 01/08/25 13:45 01/08/25 13:45 01/08/25 13:45 Temperature 98.0 F Pulse Rate 61 60 Respiratory Rate 14 16 Blood Pressure 185/105 H Pulse Oximetry 99 Oxygen Delivery Room Air 01/08/25 17:54 01/08/25 21:04 01/08/25 21:52 Temperature 98.3 F 98.2 F 98.1 F Pulse Rate 72 63 67 Respiratory Rate 16 16 16 Blood Pressure 181/92 H 167/99 H 167/107 H Pulse Oximetry 100 99 99 Oxygen Delivery 01/08/25 22:17 01/09/25 00:20 01/09/25 01:29 Temperature 97.3 F L 97.4 F L Pulse Rate 55 L 64 59 L Respiratory Rate 20 20 Blood Pressure 187/98 H 176/88 H Pulse Oximetry 100 97 Oxygen Delivery 01/09/25 04:00 01/09/25 04:40 Temperature 97.6 F Pulse Rate 70 58 L Respiratory Rate 20 Blood Pressure 159/91 H Pulse Oximetry 97 Oxygen Delivery Exam Narrative: AF HR 81 RR 20 SpO2 97 BP 159/91 General: male in no acute respiratory distress who is nontoxic appearing, sitting up in bed. HEENT: Normocephalic. Atraumatic. Extraocular movement intact. Sclera clear and anicteric. No facial asymmetry. Neck: Neck was supple. No dominant adenopathy, thyromegaly or masses. Chest: Lungs are clear to auscultation bilaterally. No wheezes or crackles. CV: Heart was regular rate and rhythm. S1/S2. No murmurs, gallops, or rubs. Abd: Abdomen was soft. Nontender. Nondistended. Positive bowel sounds. Ext: No clubbing, cyanosis, or edema. 2+ DP pulses bilaterally. Neuro: Patient is alert and oriented x4. Strength is 5/5 in both upper and lower extremities. Speech is clear. Psych: Normal mood and affect. Patient is pleasant and cooperative. Skin: Warm and dry. No rashes noted. H&P: Results Labs Labs: Short CBC 01/08/25 Range/Units 13:50 WBC 5.5 (4.5-10.0) K/mm3 Hgb 15.3 (14.0-18.0) g/dL Hct 47.0 (42.0-52.0) % Plt Count 181 (150-375) k/mm3 BMP 01/08/25 13:50 Sodium 142 Potassium 4.2 Chloride 109 H Carbon Dioxide 24 BUN 10 Creatinine 0.81 Glucose 103 Calcium 9.5 Cardiac Enzymes 01/08/25 Range/Units 13:50 Total Creatine Kinase 157 (55-170) U/L Troponin I < 0.012 (0.000-0.034) ng/mL Liver Function 01/08/25 Range/Units 13:50 Total Bilirubin 0.6 (0.2-1.3) mg/dL AST 36 (17-59) U/L ALT 43 (6-50) U/L Alkaline Phosphatase 94 (38-126) U/L Albumin 4.3 (3.5-5.1) g/dL Urine 01/08/25 Range/Units 18:32 Urine Color Yellow (Yellow) Urine Appearance Clear (Clear) Urine pH 6.5 (5.0-9.0) Ur Specific [place] 1.018 (1.001-1.035) Urine Protein Negative (Negative) mg/dL Urine Glucose (UA) Negative (Negative) mg/dL Assessment and Plan Assessment and plan (1) Hypertensive urgency: Code(s): I16.0 - Hypertensive urgency Status: Acute Assessment and Plan: BP 185/105 on admission, patient states he has not taken his amlodipine since 01/04 because he forgot. Patient states BP typically 150 systolic - Resume amlodipine 5 mg daily - continue to monitor, blood pressures have improved since resuming home medication - EKG sinus rhythm. Stress test 12/02/21 was negative. - no sign of organ involvement (2) Blurred vision: Code(s): H53.8 - Other visual disturbances Status: Acute Assessment and Plan: Patient continues to endorse slight blurred vision but notes that this has improved since admission. - Last eye appointment at 19 years old, possibly worsening vision secondary to poor BP control. Recommend outpatient eye exam. - Head CT showed no evidence for acute intracranial hemorrhage or calvarial fracture - Neurology consulted, appreciate recommendations MRI brain to rule out possibility of small stroke EEG rule out partial seizures (3) Headache: Code(s): R51.9 - Headache, unspecified Status: Acute Assessment and Plan: BP 185/105 on admission, patient states he has not taken his amlodipine since 01/04. Likely related to patients hypertension as headache has resolved since resuming home medication Continue to monitor Quality VTE Prophylaxis VTE prophylaxis: mechanical ordered Hospitalist MIPS Advance Care Plan I have confirmed that the patient's Advanced Care Plan is present, code status is documented, or surrogate decision maker is listed in patient medical record.: Yes Medication Reconciliation I have utilized all available resources to obtain, update and review the patients current medications (includes all prescriptions, OTC, herbals, cannabis, and nutritional supplements).: Yes
[2025-01-09 08:26] LABS: Hematocrit 48.2 % (42.0-52.0); Hemoglobin 15.7 g/dL (14.0-18.0); Mean Corpuscular HGB Conc 32.6 g/dl (32-36); Mean Corpuscular Hemoglobin 28.9 pg (26-34); Mean Corpuscular Volume 88.6 fl (80-100); Platelet Count Result 159 k/mm3 (150-375); Red Blood Count 5.44 M/mm3 (4.6-6.20); White Blood Count 5.4 K/mm3 (4.5-10.0)
[2025-01-09 08:42] LABS: Magnesium 1.9 mg/dL (1.6-2.3)
[2025-01-09 08:44] LABS: Alanine Aminotransferase 50 U/L (6-50); Albumin Level 4.2 g/dL (3.5-5.1); Alkaline Phosphatase 87 U/L (38-126); Anion Gap 9 mmol/L (4-12); Aspartate Amino Transferase 44 U/L (17-59); Bilirubin,Total 1.0 mg/dL (0.2-1.3); Blood Urea Nitrogen 9 mg/dL (9-20); Calcium 9.1 mg/dL (8.4-10.2); Carbon Dioxide 24 mmol/L (22-30); Chloride 106 mmol/L (98-107); Estimated CRCL calculation 128 ml/min; Estimated Glomerular Filt Rate > 60; Glucose 102 mg/dL (65-110); Potassium 4.1 mmol/L (3.4-5.0); Sodium 139 mmol/L (137-145); Total Protein 7.8 g/dL (6.3-8.2)
--- NOTE | 2025-01-09 09:27 | P.CONNEU_ITS ---
Assessment and Plan Assessment and plan (1) Headache: Code(s): R51.9 - Headache, unspecified Status: Acute (2) Blurred vision: Code(s): H53.8 - Other visual disturbances Status: Acute Plan Number change in the mental status with negative CT scan of the head for the bleed will obtain the MRI of the brain to rule out the possibility of small stroke. 2. Rule out the possibility of the partial seizures will obtain the EEG in the meantime continue the medication as such. Consult date: 01/09/25 HPI: Jules Rodríguez is a 54 year old male admitted to the hospital through the emergency room with complaints of not feeling well in the morning described as being foggy and headaches located in the forehead ,did manage to go to work but was unable to get the work started ,was feeling wobbly and unable to concentrate. Has history of hypertension, hyperlipidemia, occasional drinking , and frequent use of marijuana, allergic to Crestor, has history of mucinous adenocarcinoma of the appendix in the past, has undergone colectomy in 2020, he has smoked 24 years,his smoking pack years 36,, at present not smoking, drinks 24 drinks per week, initial vital signs, blood pressure 185/105, CBC normal, CMP normal, drug screen positive for cannabinoids, CT head negative for bleed, the chest negative. Review of Systems 2 Review of Systems: All systems reviewed & are unremarkable except as noted in HPI and below PMFSH Past Medical History Medical History Infected sebaceous cyst of skin COVID-19 BMI 29.0-29.9,adult BMI 30.0-30.9,adult Iron deficiency anemia Abnormal CK Rectal bleeding Swelling of left wrist Left wrist injury (~12/04/20) Pre-op exam Mucinous adenocarcinoma of appendix ETOH abuse BMI 31.0-31.9,adult Hyperlipidemia BMI 32.0-32.9,adult Cutaneous horn Elevated blood pressure reading Elevated cholesterol Epidermal inclusion cyst Surgical History Surgical History H/O colectomy 12/06/23 Hand access laparoscopic right colectomy History of laparoscopic appendectomy Status post surgical removal of nail matrix of toe Family History Family History Grandparent Cerebrovascular accident Malignant neoplasm of prostate Father Family history of coronary artery disease Acute myocardial infarction Hypertension Heart disease Mother Hypertension Sibling IBS (irritable bowel syndrome) Other Family history of cardiovascular disease Family history of malignant neoplasm Social History Social History Smoking packs per day: 1.5 Smoking cigarettes per day: 30.0 Years smoked: 24 Smoking pack-years: 36.00 Smoking status: Never smoker Tobacco type: cigarettes Second hand tobacco smoke exposure: No Smoking end date: 01/02/16 Alcohol intake: current Drinks per week: 24 Alcohol use details: BEER Substance use: current Substance use type: marijuana Other substance usage details: none Last use: Tuesday Do You Feel Safe in your Home?: Yes Lack of Transportation: No Lack of Food: Never True Current Housing: I Have Housing Concerned About Future Housing: No Difficulty Paying Gas/Electric Bills: No Difficulty Paying for Meds: No Currently Unemployed: No Education: High School Diploma/GED Difficulty w/ Childcare or Family Care: No Living arrangements: with family Additional living arrangements comments: [place] Occupation/Education: occupation 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 Gender identity (if verbalized by the patient): Male Sexual Orientation (if Verbalized by the Patient): Straight or Heterosexual Spiritual care concerns: No Meds Home Medications and Allergies Home Medications ?Medication ?Instructions ?Recorded ?Confirmed ?Type amoxicillin 875 mg-potassium 1 tablet PO Q12H 7 days #14 tabs 12/06/24 12/17/24 Rx clavulanate 125 mg tablet hydrocodone 5 mg-acetaminophen 325 1 tablet PO Q6H PRN pain 3 days 12/06/24 12/17/24 Rx mg tablet #12 tabs amlodipine 5 mg tablet See Rx Instructions .Route 01/03/25 01/08/25 Rx .COMPLEX #90 tabs ezetimibe 10 mg tablet (Zetia) 10 mg PO DAILY #90 tabs 01/03/25 Rx Allergies Allergy/AdvReac Type Severity Reaction Status Date / Time rosuvastatin (From Crestor) Allergy Severe Diarrhea Verified 12/17/24 14:14 Vital Signs Vital Signs - 24 hr 01/08/25 13:45 01/08/25 13:45 01/08/25 13:45 Temperature 36.7 C Pulse Rate 61 60 Respiratory Rate 14 16 Blood Pressure 185/105 H Pulse Oximetry 99 Oxygen Delivery Room Air 01/08/25 17:54 01/08/25 21:04 01/08/25 21:52 Temperature 36.8 C 36.8 C 36.7 C Pulse Rate 72 63 67 Respiratory Rate 16 16 16 Blood Pressure 181/92 H 167/99 H 167/107 H Pulse Oximetry 100 99 99 Oxygen Delivery 01/08/25 22:17 01/09/25 00:20 01/09/25 01:29 Temperature 36.3 C L 36.3 C L Pulse Rate 55 L 64 59 L Respiratory Rate 20 20 Blood Pressure 187/98 H 176/88 H Pulse Oximetry 100 97 Oxygen Delivery 01/09/25 04:00 01/09/25 04:40 01/09/25 08:00 Temperature 36.4 C Pulse Rate 70 58 L 64 Respiratory Rate 20 Blood Pressure 159/91 H Pulse Oximetry 97 Oxygen Delivery 01/09/25 08:40 Temperature Pulse Rate Respiratory Rate Blood Pressure Pulse Oximetry Oxygen Delivery Room Air Exam 2 Narrative: exam today revealed him to be awake alert cooperative sitting in chair waiting for the lunch, his speech not dysphasic not dysarthric not dysphonic, aware of right and left, head normocephalic with no bruit, ear nose throat examination normal, neck supple with no cervical bruit no thyromegaly no lymphadenopathy, heart regular with no murmur, lungs clear to auscultation with no rhonchi or crepitations, abdomen is soft nontender with normal bowel sounds, neurologically he is awake alert aware of being in the hospital with normal and full speech without evidence of dysphagia or dysarthria or dysphonia, pupils round regular dean of vision full extraocular movements full facial sensation intact face symmetrical tongue midline uvula midline and motor examination revealed him to have normal strength and tone with symmetric reflexes downgoing plantar responses and no evidence of cerebellar dysfunction. Results Labs 01/09/25 08:18 01/09/25 08:18 Labs: Short CBC 01/08/25 01/09/25 Range/Units 13:50 08:18 WBC 5.5 5.4 (4.5-10.0) K/mm3 Hgb 15.3 15.7 (14.0-18.0) g/dL Hct 47.0 48.2 (42.0-52.0) % Plt Count 181 159 (150-375) k/mm3 BMP 01/08/25 01/09/25 13:50 08:18 Sodium 142 139 Potassium 4.2 4.1 Chloride 109 H 106 Carbon Dioxide 24 24 BUN 10 9 Creatinine 0.81 0.73 Glucose 103 102 Calcium 9.5 9.1 Cardiac Enzymes 01/08/25 Range/Units 13:50 Total Creatine Kinase 157 (55-170) U/L Troponin I < 0.012 (0.000-0.034) ng/mL Liver Function 01/08/25 01/09/25 Range/Units 13:50 08:18 Total Bilirubin 0.6 1.0 (0.2-1.3) mg/dL AST 36 44 (17-59) U/L ALT 43 50 (6-50) U/L Alkaline Phosphatase 94 87 (38-126) U/L Albumin 4.3 4.2 (3.5-5.1) g/dL Urine 01/08/25 Range/Units 18:32 Urine Color Yellow (Yellow) Urine Appearance Clear (Clear) Urine pH 6.5 (5.0-9.0) Ur Specific [place] 1.018 (1.001-1.035) Urine Protein Negative (Negative) mg/dL Urine Glucose (UA) Negative (Negative) mg/dL
[2025-01-10] VITALS: PULSE 68
[2025-01-10 04:00] VITALS: PULSE 74
[2025-01-10 06:27] LABS: Hematocrit 48.2 % (42.0-52.0); Hemoglobin 15.4 g/dL (14.0-18.0); Mean Corpuscular HGB Conc 32.0 g/dl (32-36); Mean Corpuscular Hemoglobin 28.9 pg (26-34); Mean Corpuscular Volume 90.6 fl (80-100); Platelet Count Result 162 k/mm3 (150-375); Red Blood Count 5.32 M/mm3 (4.6-6.20); White Blood Count 5.7 K/mm3 (4.5-10.0)
[2025-01-10 06:37] VITALS: BP 115/66; PULSE 109; RESP 18; TEMP 36.7; O2SAT 100
[2025-01-10 07:16] LABS: Alanine Aminotransferase 53 U/L (6-50); Albumin Level 4.0 g/dL (3.5-5.1); Alkaline Phosphatase 80 U/L (38-126); Anion Gap 9 mmol/L (4-12); Aspartate Amino Transferase 42 U/L (17-59); Bilirubin,Total 0.8 mg/dL (0.2-1.3); Blood Urea Nitrogen 13 mg/dL (9-20); Calcium 9.0 mg/dL (8.4-10.2); Carbon Dioxide 22 mmol/L (22-30); Chloride 106 mmol/L (98-107); Estimated CRCL calculation 115 ml/min; Estimated Glomerular Filt Rate > 60; Glucose 114 mg/dL (65-110); Potassium 4.0 mmol/L (3.4-5.0); Sodium 137 mmol/L (137-145); Total Protein 7.3 g/dL (6.3-8.2)
[2025-01-10 08:00] VITALS: PULSE 61
--- NOTE | 2025-01-10 08:20 | P.PNIM_ITS ---
Progress Note: A&P Assessment and Plan (1) Hypertensive urgency: Code(s): I16.0 - Hypertensive urgency Status: Acute Assessment and Plan: BP 185/105 on admission, patient states he has not taken his amlodipine since 01/04 because he forgot. Patient states BP typically 150 systolic - Resume amlodipine 5 mg daily - continue to monitor, blood pressures have improved since resuming home medication - EKG sinus rhythm. Stress test 12/02/21 was negative. - no sign of organ involvement (2) Blurred vision: Code(s): H53.8 - Other visual disturbances Status: Acute Assessment and Plan: Patient continues to endorse slight blurred vision but notes that this has i mproved since admission. - Last eye appointment at 19 years old, possibly worsening vision secondary to poor BP control. Recommend outpatient eye exam. - Head CT showed no evidence for acute intracranial hemorrhage or calvarial fracture - Neurology consulted, appreciate recommendations MRI brain to rule out possibility of small stroke EEG rule out partial seizures (3) Headache: Code(s): R51.9 - Headache, unspecified Status: Acute Assessment and Plan: BP 185/105 on admission, patient states he has not taken his amlodipine since 01/04. Likely related to patients hypertension as headache has resolved since resuming home medication Continue to monitor Subjective Date/time seen: 01/10/25 08:20 Interval history: 54 year old male with past medical history of mucinous adenocarcinoma of appendix s/p appendectomy, hypertension and hyperlipidemia presents to the hospital for headache and blurred vision. Review of Systems Review of Systems: All systems reviewed & are unremarkable except as noted in HPI and below Exam Narrative: AF HR General: male in no acute respiratory distress who is nontoxic appearing, sitting up in bed. HEENT: Normocephalic. Atraumatic. Extraocular movement intact. Sclera clear and anicteric. No facial asymmetry. Neck: Neck was supple. No dominant adenopathy, thyromegaly or masses. Chest: Lungs are clear to auscultation bilaterally. No wheezes or crackles. CV: Heart was regular rate and rhythm. S1/S2. No murmurs, gallops, or rubs. Abd: Abdomen was soft. Nontender. Nondistended. Positive bowel sounds. Ext: No clubbing, cyanosis, or edema. 2+ DP pulses bilaterally. Neuro: Patient is alert and oriented x4. Strength is 5/5 in both upper and lower extremities. Speech is clear. Psych: Normal mood and affect. Patient is pleasant and cooperative. Skin: Warm and dry. No rashes noted. Objective Data Vital Signs Vital Signs: Vital Signs - 24 hr 01/09/25 08:40 01/09/25 12:00 01/09/25 14:28 Temperature 98.0 F Pulse Rate 81 79 Respiratory Rate 20 Blood Pressure 157/88 H Pulse Oximetry 99 Oxygen Delivery Room Air Fraction of Inspired Oxygen 01/09/25 16:00 01/09/25 20:00 01/09/25 20:00 Temperature Pulse Rate 75 75 79 Respiratory Rate 20 Blood Pressure Pulse Oximetry 99 Oxygen Delivery Room Air Fraction of Inspired Oxygen 01/09/25 22:25 01/09/25 23:01 01/10/25 00:00 Temperature 98.0 F Pulse Rate 79 71 68 Respiratory Rate 20 20 Blood Pressure 147/89 H Pulse Oximetry 95 97 Oxygen Delivery Room Air Fraction of Inspired Oxygen 21 01/10/25 04:00 01/10/25 06:37 Temperature 98.1 F Pulse Rate 74 109 H Respiratory Rate 18 Blood Pressure 115/66 Pulse Oximetry 100 Oxygen Delivery Fraction of Inspired Oxygen Intake/Output Intake/Output: Intake & Output 01/07/25 01/08/25 01/09/25 01/10/25 23:59 23:59 23:59 23:59 Intake Total 2240 1440 350 Output Total 900 Balance 2240 540 350 Meds/Results Medications: Active Medications Generic Name Dose Route Start Last Admin Trade Name Freq PRN Reason Stop Dose Admin Acetaminophen 650 mg 01/09/25 14:56 Acetaminophen 325 Mg Tablet PO Q4H PRN Mild Pain (1-3) or Fever Amlodipine Besylate 5 mg 01/09/25 09:00 01/09/25 08:42 Amlodipine Besylate 5 Mg Tablet PO 5 mg DAILY HENRIETTA Administration Ondansetron HCl 4 mg 01/09/25 14:56 Ondansetron Inj 4 Mg/2 Ml Vial IV PUSH Q6H PRN Nausea And Vomiting Radiology Results: ITS Impressions Chest X-Ray 01/08/25 15:11 IMPRESSION: No acute cardiopulmonary pathology. Head CT 01/08/25 15:16 IMPRESSION: No evidence for acute intracranial hemorrhage or calvarial fracture. Labs Labs: Laboratory Results - last 24 hr 01/09/25 01/10/25 08:18 06:04 WBC 5.4 5.7 RBC 5.44 5.32 Hgb 15.7 15.4 Hct 48.2 48.2 MCV 88.6 90.6 MCH 28.9 28.9 MCHC 32.6 32.0 RDW 13.6 13.6 Plt Count 159 162 MPV 9.2 9.4 Sodium 139 137 Potassium 4.1 4.0 Chloride 106 106 Carbon Dioxide 24 22 Anion Gap 9 9 BUN 9 13 Creatinine 0.73 0.82 Estim Creat Clear Calc 128 115 Estimated GFR > 60 > 60 Glucose 102 114 H Calcium 9.1 9.0 Phosphorus 3.6 Magnesium 1.9 Total Bilirubin 1.0 0.8 AST 44 42 ALT 50 53 H Alkaline Phosphatase 87 80 Total Protein 7.8 7.3 Albumin 4.2 4.0 Quality VTE Prophylaxis VTE prophylaxis: mechanical ordered
[2025-01-10 12:00] VITALS: PULSE 84
--- NOTE | 2025-01-10 13:29 | P.DS_ITS ---
DS: Admitting Diagnosis Discharge Date 01/10/2025 Admitting Diagnosis hypertensive urgency blurred vision headache DS: Discharge Diagnosis Discharge Diagnosis (1) Hypertensive urgency: Code(s): I16.0 - Hypertensive urgency Status: Acute (2) Blurred vision: Code(s): H53.8 - Other visual disturbances Status: Acute (3) Headache: Code(s): R51.9 - Headache, unspecified Status: Acute DS: Summary Hospital Course Reason for hospitalization: hypertensive urgency blurred vision headache Hospital Course: 54 year old male with past medical history of mucinous adenocarcinoma of appendix s/p appendectomy, hypertension and hyperlipidemia presents to the hospital for headache and blurred vision. Denies trauma. He notes that he has not taken his amlodipine since TuesdayJanuary 04 because he forgot it when he went to the [place]. He has not since checked his blood pressure but he notes that it typically runs in the 150s systolic. He denies any recent changes to medications. Troponin negative. UA unremarkable. Toxicology positive for cannab inoids. Chest XR showed no acute cardiopulmonary pathology. Head CT showed no evidence of acute intracranial hemorrhage or calvarial fracture. Neurology consulted and recommended patient obtain an EEG and MRI. Patient had not yet received his MRI or EEG however all symptoms have resolved and blood pressure remains stable. Discussed patient with neurology Dr. Holloway who is in agreement that the MRI and EEG can be done outpatient if need be. Discussed possibly doing the tests outpatient and patient was agreeable with that plan. Patient states he feels back at his baseline. He denies any dizziness/lightheadedness/blurred vision, weakness/tingling/numbness, slurred speech, gait instability, chest pain, palpitations, shortness of breath, nausea/vomiting and abdominal pain. Patient discharged home with family in a stable condition. He is to follow-up with his primary care provider in 1 week and Neurology as scheduled. Status at Discharge Functional status at discharge: independent ambulation Time Spent with Patient Time attestation: Total time spent providing and/or coordinating discharge services: Time spent: Greater than 30 minutes Exam Narrative: AF HR 84 RR 18 SpO2 100 BP 115/66 General: male in no acute respiratory distress who is nontoxic appearing, sitting up in chair HEENT: Normocephalic. Atraumatic. Extraocular movement intact. Sclera clear and anicteric. No facial asymmetry. Chest: Lungs are clear to auscultation bilaterally. No wheezes or crackles. CV: Heart was regular rate and rhythm. S1/S2. No murmurs, gallops, or rubs. Abd: Abdomen was soft. Nontender. Nondistended. Positive bowel sounds. Ext: No clubbing, cyanosis, or edema. 2+ DP pulses bilaterally. Neuro: Patient is alert and oriented x4. Strength is 5/5 in both upper and lower extremities. Speech is clear. Psych: Normal mood and affect. Patient is pleasant and cooperative. Skin: Warm and dry. No rashes noted. DS: Data Data Completed and Pending Completed studies during hospitalization: head ct chest xr Labs on day of discharge: Labs from last 24 hours 01/10/25 06:04 WBC 5.7 RBC 5.32 Hgb 15.4 Hct 48.2 MCV 90.6 MCH 28.9 MCHC 32.0 RDW 13.6 Plt Count 162 MPV 9.4 Sodium 137 Potassium 4.0 Chloride 106 Carbon Dioxide 22 Anion Gap 9 BUN 13 Creatinine 0.82 Estim Creat Clear Calc 115 Estimated GFR > 60 Glucose 114 H Calcium 9.0 Total Bilirubin 0.8 AST 42 ALT 53 H Alkaline Phosphatase 80 Total Protein 7.3 Albumin 4.0 Discharge Plan Discharge Attending physician on discharge: Enrique Jimenez Consulting providers: Pieter Klein; Shelby Licea Discharging Clinician: Shelby Licea Anticipated Discharge Date/Time: 01/10/25 13:13 Patient Disposition: Home Activity: as tolerated Diet: as tolerated and heart healthy Discharge Instructions: Discharge disposition: Patient admitted to the hospital for a headache and blurred vision with elevated blood pressures Imaging unremarkable Obtain an MRI in the outpatient setting, this can be ordered by primary care or Neurology Follow-up with neurology, call for an appointment Resumed amlodipine and blood pressures resolved as well as other symptoms Continue amlodipine as prescribed Document daily blood pressures and discuss antihypertensives with your primary care Take caution while standing, rising, or moving Change positions slowly taking a break between each position change If you standing feel dizzy sit back down and take a break Encouraged to continue with yearly vaccinations Return to the emergency department if he developed sudden shortness of breath, chest pain, nausea, vomiting, upset stomach or intractable diarrhea Return to the emergency department if you develop fever greater than 101.5 Follow-up with the primary care physician within 1-2 weeks Thank you for [facility] for your healthcare needs Patient Instructions: Amlodipine (By mouth), Acute Headache (DC), Chronic Hypertension (DC), Blurred Vision (ED) Patient Language: Qatari Stand Alone Forms: General Discharge Information Follow-up/Referrals: Pieter Klein MD [Physician] - Call for Appointment Pete Landrum MD [Primary Care Provider] - 1 Week Discharge Medications: Continued hydrocodone-acetaminophen 5-325 mg tablet 1 tablet PO Q6H PRN (Reason: pain) 3 Days Qty: 12 0RF ezetimibe [Zetia] 10 mg tablet 10 mg PO DAILY Qty: 90 0RF amlodipine 5 mg tablet See Rx Instructions .ROUTE .COMPLEX Qty: 90 0RF Dose Instruction: TAKE 1 TABLET BY MOUTH DAILY FOR HIGH BLOOD PRESSURE Rx Instructions: TAKE 1 TABLET BY MOUTH DAILY FOR HIGH BLOOD PRESSURE Discontinued amoxicillin-pot clavulanate 875-125 mg tablet 1 tablet PO Q12H 7 Days Qty: 14 0RF Date of admission: 01/08/25 19:43 Primary Care Provider: Pete Landrum Admitting Provider: Isabel Osborn Attending physician on admission: Isabel Osborn Condition: Stable Hospitalist MIPS Heart Failure (Exclusion) Patient has history of Heart Transplant or Left Ventricular Assistive Device?: No IF YES, STOP HERE Heart Failure (Qualifier) Patient has current or prior documentation of LVEF less than or equal to 40%, or mod/servere depressed LVSF?: No IF NO, STOP HERE
== END 2025-01-10 14:13 | disposition home or self-care (01) ==
LOC: ANHED 19:48 → ANH2MED 01-09 12:48 → ANH3MEDSUR 01-11 07:08
PROVIDERS: Emergency Medicine; Student in an Organized Health Care Education/Training Program; Admitting Provider Internal Medicine; Emergency Provider Emergency Medicine; PCP Family Medicine; Visit Provider Internal Medicine
DX: I16.0 Hypertensive urgency (principal); H53.8 Other visual disturbances; E78.5 Hyperlipidemia, unspecified; Z85.09 Personal history of malignant neoplasm of other digestive organs; Z87.891 Personal history of nicotine dependence
CPT/HCPCS: 36415; 70450; 71045; 80053; 80307; 81003; 82550; 83735; 84100; 84443; 84484; 85025; 85027; 93005; 96361; 96374; 99285; A9270; G0378; J0360; J7030

== ENCOUNTER 2025-03-12 16:19 | Outpatient (CLI) | payer OTHER, SELFPAY ==
--- NOTE | ~2025-03-12 | US_ITS ---
EXAMINATION: US carotid duplex BI DATE: 03/12/2025 16:38 INDICATION: Blurred vision. Confusion. TECHNIQUE: Grayscale, color Doppler, and pulsed Doppler images of the cervical carotid arteries were obtained. The degree of vessel stenosis is placed in one of the following categories: normal, <50%, 50-69%, >=70% but less than near- occlusion, near-occlusion, or total occlusion. Note that percent stenosis relative to normal distal artery lumen diameter is indirectly measured from velocity measurements as described by Rico, et al. Radiology 2003; 229:340-346. Notes: Normal: Peak systolic velocity <125 centimeters/sec and no plaque <50%. Peak systolic velocity <125 (EDV <40; ICA/CCA PSV ratio <2.0; used these factors only a tandem lesions or low cardiac output or contralateral disease) 50-69 %: PSV 125-230 (EDV 40-100; ratio 2-4) >= 70% but less than near occlusion: PSV greater than 230 (EDV > 100; ratio> 4.0) Near Occlusion: PSV that is variable; markedly narrowed lumen Occlusion: Absent flow on color/spectral Doppler and no lumen on aldridge scale. COMPARISON: None. FINDINGS: RIGHT: The right common carotid artery (CCA) peak systolic velocity (PSV) is 139 cm/s. The right internal carotid artery (ICA) PSV is 103 cm/s. The right ICA end- diastolic velocity (EDV) is 37 cm/s. The right ICA/CCA PSV ratio is 1.2. The external carotid artery (ECA) PSV is 107 cm/s. There is antegrade flow in the right vertebral artery. LEFT: The left CCA PSV is 117 cm/s. The left ICA PSV is 66 cm/s. The left ICA EDV is 25 cm/s. The left ICA/CCA PSV ratio is 0.8. The ECA PSV is 104 cm/s. There is antegrade flow in the left vertebral artery. IMPRESSION: 1. Less than 50% stenosis in the right internal carotid artery by sonographic criteria. 2. Less than 50% stenosis in the left internal carotid artery by sonographic criteria. Reviewed, dictated and finalized at location O. IMPRESSION: 1. Less than 50% stenosis in the right internal carotid artery by sonographic adan regan. 2. Less than 50% stenosis in the left internal carotid artery by sonographic za pool.
== END 2025-03-12 16:20 | disposition home or self-care (01) ==
LOC: MICIMG 16:20
PROVIDERS: PCP Psychiatry & Neurology Neurology; Visit Provider Psychiatry & Neurology Neurology
DX: R51.9 Headache, unspecified (principal); R20.0 Anesthesia of skin; R20.2 Paresthesia of skin; I10 Essential (primary) hypertension; E78.5 Hyperlipidemia, unspecified; I63.9 Cerebral infarction, unspecified
CPT/HCPCS: 93880

== ENCOUNTER 2025-04-19 15:25 | Outpatient (CLI) | payer OTHER, SELFPAY ==
--- NOTE | ~2025-04-19 | MR_ITS ---
EXAMINATION: MR brain/brain stem wo con DATE: 04/19/2025 16:21 INDICATION: Cervical infarction, unspecified. TECHNIQUE: Magnetic resonance imaging (MRI) of the brain and brainstem was performed without intravenous contrast. COMPARISON: Head CT 01/08/2025 FINDINGS: There are scattered areas of nonspecific increased T2-weighted signal intensity in the cerebral white matter, which is within normal limits for the patient's age. There is no intracranial hemorrhage, acute infarction, or abnormal intracranial mass lesion. The ventricles are normal in size. There is a mucous retention cyst in left maxillary sinus. The orbits are normal. The mastoid air cells are normal. IMPRESSION: 1. Normal aging brain. Reviewed, dictated and finalized at location E. IMPRESSION: 1. Normal aging brain.
== END 2025-04-19 15:26 | disposition home or self-care (01) ==
LOC: MICIMG 15:26
PROVIDERS: PCP Psychiatry & Neurology Neurology; Visit Provider Psychiatry & Neurology Neurology
DX: I63.9 Cerebral infarction, unspecified (principal)
CPT/HCPCS: 70551

== ENCOUNTER 2025-07-02 09:03 | Outpatient (CLI) | payer OTHER, SELFPAY ==
--- OUTSIDE RECORDS SUMMARY | 2025-07-02 09:15 | XMS_ITS | Clinical Summary ---
Author Organization [facility] Address [address] [place] [address] Care Team Providers Care Yard Supervisor Cotton Gin Name Role Phone Pete Landrum MD Primary Care Provider [phone] Allergies No known active allergies Medications albuterol [...] Comments Blood Pressure 140/90 06/15/2024 1:10 PM [facility] Pulse 83 06/15/2024 1:10 PM [facility] [employer] [facility] Temperature 37 C (98.6 F) 12/04/2020 9:58 AM CDT Respiratory Rate 15 12/04/2020 9:58 AM CDT Oxygen Saturation 95% 06/15/2024 1:10 PM [facility] Inhaled Oxygen Concentration - - Weight 122 kg (269 lb) 06/15/2024 1:10 PM [facility] Height 195.6 cm (6' 5) 08/27/2022 9:52 AM [facility] Body Mass Index 31.9 08/27/2022 9:52 AM [facility] Plan of Treatment Health Maintenance Due Date [...] patient's age to complete this topic Insurance [facility] Address: [address] [place] [address] [facility] Address: [place] [id number] [facility] Address: [facility] [address] [place] [address] Care Teams Yard Supervisor Cotton Gin Relationship Specialty Start Date End Date Pete Landrum MD PCP - General Family Medicine 01/25/22
[2025-07-02 09:52] LABS: Hematocrit 44.3 % (42.0-52.0); Hemoglobin 15.3 g/dL (14.0-18.0); Immature Granulocyte Percent A 0.7 % (0-0.5); Lymphocytes Absolute Auto 1.55 K/mm3 (0.9-3.2); Mean Corpuscular HGB Conc 34.5 g/dl (32-36); Mean Corpuscular Hemoglobin 30.8 pg (26-34); Mean Corpuscular Volume 89.1 fl (80-100); Nucleated Red Blood Cells Absolute Auto 0.000 K/mm3 (0.0-0.012); Nucleated Red Blood Cells Perc 0.0 % (0.0-0.2); Platelet Count Result 224 k/mm3 (150-375); Red Blood Count 4.97 M/mm3 (4.6-6.20); White Blood Count 5.5 K/mm3 (4.5-10.0)
[2025-07-02 10:59] LABS: Hemoglobin A1C 5.7 % (<5.7)
== END 2025-07-02 09:04 | disposition home or self-care (01) ==
LOC: ANHLAB 09:05
PROVIDERS: PCP Family Medicine; Visit Provider Physician Assistant Medical
DX: Z12.5 Encounter for screening for malignant neoplasm of prostate (principal); I10 Essential (primary) hypertension; R73.09 Other abnormal glucose; E78.5 Hyperlipidemia, unspecified; Z82.49 Family history of ischemic heart disease and other diseases of the circulatory system
CPT/HCPCS: 36415; 83036; 85025